=== PATIENT | male | born 1960 | race Caucasian/White ===

== ENCOUNTER 2017-02-25 10:00 | Inpatient (IN) | payer OTHER ==
[2017-02-25 10:37] VITALS: BMI 29.5
--- NOTE | 2017-02-25 13:00 | HP ---
CIWA Score - CIWA Score Nausea/Vomitin (N/V/D) Muscle Tremors: 4-Moderate,w/Arms Extend Anxiety: 4-Mod. Anxious/Guarded Agitation: 3 Paroxysmal Sweats: 1-Minimal Palms Moist Orientation: 0-Oriented Tacttile Disturbances: 3-Moderate Itch/Numb/Burn Auditory Disturbances: 0-None Visual Disturbances: 0-None Headache: 1-Very Mild CIWA-Ar Total Score: 21 Admission ROS S - HPI Chief Complaint: WITHDRAWAL SX Allergies/Adverse Reactions: Allergies Allergy/AdvReac Type Severity Reaction Status Date / Time Penicillins Allergy Intermediate Swelling Verified 02/25/17 10:52 History of Present Illness: 57 Y/O H/ WITH A HX OF ALCOHOL AND COCAINE DEPENDENCE SEEKING DETOX TX. Exam Limitations: No Limitations - Ebola screening Have you traveled outside of the country in the last 21 days: No Have you had contact with anyone from an Ebola affected area: No Have you been sick,other than usual withdrawal symptoms: No - Review of Systems Constitutional: Chills, Loss of Appetite, Night Sweats, Changes in sleep, Unintentional Wgt. Loss EENT: reports: Blurred Vision, Tearing, Nose Congestion, Dental Problems (UPPER DENTURE; TOOTH EXTRACTION ONE MONTH AGO.) Respiratory: reports: Shortness of Breath (HX ASTHMA), Wheezing Cardiac: reports: Lightheadedness GI: reports: Diarrhea, Nausea, Poor Appetite, Poor Fluid Intake, Vomiting : reports: Burning (WHEN DRINKING ALCOHOL), Discharge, Frequency, Other ( UNCIRCUMSIZED- PENILE ITCHY RASH.) Musculoskeletal: reports: Back Pain, Joint Pain, Muscle Pain Integumentary: reports: Rash Neuro: reports: Headache, Seizure (LAST EPISODE WAS A WEEK AGO), Dizziness Endocrine: reports: No Symptoms Reported Hematology: reports: No Symptoms Reported Psychiatric: reports: Orientated x3, Anxious, Depressed Other Systems: Reviewed and Negative Patient History - Patient Medical History Hx Anemia: No Hx Asthma: Yes (MDI) Hx Chronic Obstructive Pulmonary Disease (COPD): No Hx Cardiac Disorders: No Hx Hypertension: No Hx Hypercholesterolemia: Yes (ON ZOCOR) HX Cerebrovascular Accident: No Hx Seizures: Yes (DUE TO FALL HEAD INJURY IN 1974;LAST 1 WEEK AGO) Hx Diabetes: Yes ([id number] LANTUS 30 UNITS) Hx Gastrointestinal Disorders: No Hx Genitourinary Disorders: No Hx Sexually Transmitted Disorders: Yes (SYPHILIS/GONORRHEA HX) Hx Renal Disease (ESRD): No Hx Thyroid Disease: No Hx Human Immunodeficiency Virus (HIV): No (DENIES) Hx Hepatitis C: No Hx Depression: Yes Hx Suicide Attempt: No (DENIES) Hx Bipolar Disorder: Yes (ON MED) Hx Schizophrenia: No - Patient Surgical History Past Surgical History: Yes Hx Neurologic Surgery: No Hx Cataract Extraction: No Hx Cardiac Surgery: No Hx Lung Surgery: No Hx Breast Surgery: No Hx Breast Biopsy: No Hx Abdominal Surgery: Yes (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/10/75) Hx Orthopedic Surgery: Yes (PLATE ON RIGHT HAND DUE TO FALL INJURY 01/10/75) Anesthesia Reaction: No - PPD History Previous Implant?: Yes Documented Results: Negative w/o proof Implanted On Prior R Admission?: Yes PPD to be Administered?: Yes - Reproductive History Patient is a Female of Child Bearing Age (11 -55 yrs old): No (MALE) - Smoking Cessation Smoking history: Current every day smoker Have you smoked in the past 12 months: Yes Aproximately how many cigarettes per day: 10 Hx Chewing Tobacco Use: No Initiated information on smoking cessation: Yes 'Breaking Loose' booklet given: 02/25/17 - Substance & Tx. History Hx Alcohol Use: Yes (VODKA/BEER) Hx Substance Use: Yes (COCAINE) Substance Use Type: Cocaine Hx Substance Use Treatment: Yes (LAST TX AT [facility]) - Substances Abused Alcohol Route: Oral Frequency: Daily Amount used: vodka(1-2 pints)/beer(2-6 pks-16 oz cans) Age of first use: 27 Date of Last Use: 02/25/17 Cocaine Route: Smoking Frequency: Daily Amount used: $150 Age of first use: 32 Date of Last Use: 02/25/17 Family Disease History - Family Disease History Family Disease History: Diabetes: Mother (), Respiratory: Mother, Other : Mother Admission Physical Exam S - Vital Signs Vital Signs: Vital Signs - 24 hr 02/25/17 10:33 Temperature 96.3 F L Pulse Rate 86 Respiratory 18 Rate Blood Pressure 145/81 - Physical General Appearance: Yes: Moderate Distress, Irritable, Anxious HEENTM: Yes: EOMI, Normocephalic, STEPHENIE, Pharynx Normal, Nasal Congestion, Rhinorrhea Respiratory: Yes: Chest Non-Tender, Lungs Clear, Normal Breath Sounds, No Respiratory Distress Neck: Yes: Supple, Trachea in good position Breast: Yes: Breast Exam Deferred Cardiology: Yes: Regular Rhythm, Regular Rate, S1, S2 Abdominal: Yes: Normal Bowel Sounds, Non Tender Genitourinary: Yes: [place], Penial Discharge (BY HX), Other (REDNESS/SWELLING) , Pain (PENILE) Back: Yes: Within Normal Limits Musculoskeletal: Yes: full range of Motion, Gait Steady Extremities: Yes: Normal Range of Motion, Non-Tender 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, Fully Oriented, Alert, Motor Strength 5/5 Integumentary: Yes: Dry, Warm Lymphatic: Yes: Within Normal Limits - Diagnostic (1) Alcohol dependence with uncomplicated withdrawal Current Visit: Yes Status: Acute (2) Cocaine dependence, uncomplicated Current Visit: Yes Status: Acute (3) Asthma Current Visit: Yes Status: Acute Qualifiers: Asthma severity: mild Asthma persistence: intermittent Asthma complication type: uncomplicated Qualified Code(s): J45.20 - Mild intermittent asthma, uncomplicated (4) Seizure disorder Current Visit: Yes Status: Chronic (5) Hx of head injury Current Visit: Yes Status: Chronic (6) Hypercholesterolemia Current Visit: Yes Status: Chronic (7) Balanitis Current Visit: Yes Status: Acute Cleared for Admission [facility] - Detox or Rehab [facility] Level of Care: Medically Managed Detox Regimen/Protocol: Librium [facility] Breath Alcohol Content Breath Alcohol Content: 0 Urine Drug Screen - Results Drug Screen Negative: No Urine Drug Screen Results: NEY-Cocaine, BZO-Benzodiazepines
[2017-02-25] MEDS ORDERED: MAGNESIUM HYDROX 2400MG/30ML ORAL SUSPENSION 30 ML CUP PO PRN (13:18)
[2017-02-25] MEDS ORDERED: P-EPHED 60MG/TRIPROLIDI 2.5MG TABLET PO PRN (13:18)
[2017-02-25] MEDS ORDERED: chlordiazePOXIDE HCL 25 MG CAPSULE PO PRN (13:18)
[2017-02-25] MEDS ORDERED: MENTHOL/PHENOL 1 EACH UD MM PRN (13:18)
[2017-02-25] MEDS ORDERED: ACETAMINOPHEN 325 MG TABLET (FP) PO PRN (13:18)
[2017-02-25] MEDS ORDERED: guaiFENesin/D-METHORPHAN HB 10 ML UNIT-DOSE CUPS PO PRN (13:18)
[2017-02-25] MEDS ORDERED: MAGNESIUM CITRATE 300 ML BOTTLE PO PRN (13:18)
[2017-02-25] MEDS ORDERED: MAG HYDROX/AL HYDROX/SIMETH 30 ML UNIT-DOSE CUP PO PRN (13:18)
[2017-02-25] MEDS ORDERED: IBUPROFEN 400 MG TABLET (FP) PO PRN (13:18)
[2017-02-25] MEDS ORDERED: NICOTINE POLACRILEX 2 MG GUM BC PRN (13:18)
[2017-02-25] MEDS ORDERED: LOPERAMIDE HCL 2 MG CAPSULE PO PRN (13:18)
[2017-02-25] MEDS ORDERED: ALBUTEROL SO4 18 GM HFA INHALER IH PRN (13:21)
[2017-02-25] MEDS ORDERED: PATIENT'S OWN MEDICATION (NON-FORMULARY) (Sitagliptin Phos/Metformin Hcl [Janumet 50-1,000 PO SCH (13:30)
[2017-02-25] MEDS ORDERED: chlordiazePOXIDE HCL 25 MG CAPSULE PO ONE (14:00)
[2017-02-25] MEDS: BUDESONIDE/FORMETEROL FUMARATE 160/4.5 mcg INHALER IH SCH ×2 (14:20→22:33)
[2017-02-25] MEDS ORDERED: sitaGLIPtin PHOSPHATE 50 MG TABLET PO SCH (14:22)
[2017-02-25] MEDS: NICOTINE 14 MG/24 HOURS TOPICAL PATCH TD SCH (14:24)
[2017-02-25] MEDS ORDERED: metFORMIN HCL 500 MG TABLET (FP) PO SCH (14:24)
--- NOTE | 2017-02-25 15:26 | CONSULT ---
[facility] Psychiatric Consult - Data Date of interview: 02/25/17 Admission source: [facility] Identifying data: This is 57 years old male with psycxiatric hospitalization history intoxicated with: Alcohol and Cocaine Substance Abuse History: - Smoking Cessation. Smoking history: Current every day smoker. Have you smoked in the past 12 months: Yes. Aproximately how many cigarettes per day: 10. Hx Chewing Tobacco Use: No. Initiated information on smoking cessation: Yes. 'Breaking Loose' booklet given: 02/25/17. - Substance & Tx. History. Hx Alcohol Use: Yes (VODKA/BEER). Hx Substance Use: Yes ( COCAINE). Substance Use Type: Cocaine. Hx Substance Use Treatment: Yes (LAST TX AT [facility]). - Substances Abused. Alcohol. Route: Oral. Frequency: Daily. Amount used: vodka(1-2 pints)/beer(2-6 pks-16 oz cans). Age of first use: 27. Date of Last Use: 02/25/17. Cocaine. Route: Smoking. Frequency: Daily. Amount used: $150. Age of first use: 32. Date of Last Use: 02/25/17 Medical History: Asthma, Hypecholesterolemia, Seizure history, Head injury history Psychiatric History: Patient reportsm history of MDD, reports nost rtecent psychiatric admission on 2015 at [facility] for [facility], denies suicidal history. Reports takinmg prior to admission: Paxil 40mg poqd. TYrazodone 100mg pop qhs Physical/Sexual Abuse/Trauma History: Denies Additional Comment: Paxil 40mg poqd. Trazodone 100mg pop qhs Mental Status Exam - Mental Status Exam Alert and Oriented to: Person Cognitive Function: Fair Patient Appearance: Unkempt Mood: Sad Affect: Flat Patient Behavior: Sedated Speech Pattern: Appropriate Voice Loudness: Normal Thought Process: Circumstantial Thought Disorder: Being Controlled Hallucinations: Denies Suicidal Ideation: Denies Homicidal Ideation: Denies Insight/Judgement: Fair Sleep: Difficulty falling asleep Appetite: Fair Muscle strength/Tone: Mild Hypotonicity Gait/Station: Shuffling Additional Comments: Paxil 40mg poqd. Trazodone 100mg pop qhs
[2017-02-25] MEDS: BACITRACIN 0.9 GM PACKET TP SCH ×2 (16:11→22:31)
[2017-02-25] MEDS ORDERED: metFORMIN HCL 500 MG TABLET (FP) PO ONE (16:30)
[2017-02-25] MEDS ORDERED: sitaGLIPtin PHOSPHATE 50 MG TABLET PO ONE (16:30)
--- NOTE | 2017-02-25 16:37 | EKG ---
Test Reason : Blood Pressure : / mmHG Vent. Rate : 082 BPM Atrial Rate : 082 BPM P-R Int : 120 ms QRS Dur : 070 ms QT Int : 328 ms P-R-T Axes : 061 029 031 degrees QTc Int : 383 ms NORMAL SINUS RHYTHM NONSPECIFIC T WAVE ABNORMALITY ABNORMAL ECG NO PREVIOUS ECGS AVAILABLE Confirmed by SHARA FALLON, KIMMY ([id number]) on 02/25/2017 4:37:03 PM Referred By: Confirmed By:KIMMY OLMEDO MD
[2017-02-25 16:41] LABS: MCH 32.3 pg (25.7-33.7); MCHC 33.7 g/dl (32.0-35.9); MEAN CELL VOLUME 95.9 fl (80-96); MEAN PLT VOLUME 9.3 fl (7.5-11.1); PLATELET COUNT 321 K/MM3 (134-434); RDW 13.8 % (11.9-15.9); WHITE BLOOD COUNT 9.7 K/mm3 (4.0-10.0)
[2017-02-25 17:40] LABS: ALBUMIN 4.1 g/dl (3.4-5.0); ANION GAP 9 (8-16); BILIRUBIN,TOTAL 0.5 mg/dL (0.2-1.0); CALCIUM 9.4 mg/dL (8.5-10.1); CO2 28 mmol/L (21-32); CREATININE 1.1 mg/dL (0.7-1.3); SGOT/AST 22 U/L (15-37); SGPT/ALT 33 U/L (12-78); TOT PROT 7.6 g/dl (6.4-8.2)
[2017-02-25 17:41] LABS: ALK PHOS 91 U/L (45-117)
[2017-02-25] MEDS: CLINDAMYCIN HCL 150 MG CAPSULE (FP) PO SCH ×2 (17:51→23:57)
[2017-02-25] MEDS: chlordiazePOXIDE HCL 25 MG CAPSULE PO SCH ×2 (17:52→22:32)
[2017-02-25 17:57] LABS: SICKLE CELL SCREEN NEGATIVE (NEGATIVE)
[2017-02-25 19:01] LABS: GLUCOSE,RANDOM 372 mg/dL (74-106)
[2017-02-25 19:39] LABS: URINE LEUK ESTERASE Negative (NEGATIVE)
[2017-02-25] MEDS ORDERED: INSULIN SLIDING SCALE (NOVOLOG) 1 VIAL SQ SCH (22:00)
--- NOTE | 2017-02-25 22:16 | PN ---
[facility] Progress Note Note: received nurse call bgm [phone] order insulin sliding scale begin 02/25/17
[2017-02-25] MEDS: traZODone HCL 100 MG TABLET (FP) PO SCH (22:31)
[2017-02-25] MEDS: THIAMINE HCL 100 MG TABLET (FP) PO SCH (22:31)
[2017-02-25] MEDS: ATORVASTATIN CA 10 MG TABLET (FP) PO SCH (22:31)
[2017-02-25] MEDS ORDERED: INSULIN (NOVOLOG) ASPART 100 UNITS/ML 10ML VIAL ONE (22:40)
[2017-02-25] MEDS: INSULIN DETEMIR 100 UNITS/ML MDV SQ SCH (22:56)
[2017-02-25] MEDS: INSULIN SLIDING SCALE (NOVOLOG) 1 VIAL SQ SCH (22:57)
[2017-02-26] MEDS: metFORMIN HCL 500 MG TABLET (FP) PO SCH (06:18)
[2017-02-26] MEDS: chlordiazePOXIDE HCL 25 MG CAPSULE PO SCH ×4 (06:18→23:22)
[2017-02-26] MEDS: CLINDAMYCIN HCL 150 MG CAPSULE (FP) PO SCH ×4 (06:18→23:54)
[2017-02-26] MEDS ORDERED: INSULIN (NOVOLOG) ASPART 100 UNITS/ML 10ML VIAL ONE ×2 (06:18→23:25)
[2017-02-26] MEDS: sitaGLIPtin PHOSPHATE 50 MG TABLET PO SCH (06:18)
[2017-02-26] MEDS: INSULIN SLIDING SCALE (NOVOLOG) 1 VIAL SQ SCH ×4 (06:19→23:28)
[2017-02-26 09:03] LABS: HIV 1 & 2 AB NEGATIVE; HIV 1 AGp24 NEGATIVE
[2017-02-26] MEDS: ASPIRIN 81 MG CHEWABLE TABLETS PO SCH (11:05)
[2017-02-26] MEDS: BACITRACIN 0.9 GM PACKET TP SCH ×2 (11:05→23:21)
[2017-02-26] MEDS: PARoxetine HCL 20 MG TABLET (FP) PO SCH (11:05)
[2017-02-26] MEDS: BUDESONIDE/FORMETEROL FUMARATE 160/4.5 mcg INHALER IH SCH ×2 (11:05→23:22)
[2017-02-26] MEDS: PRENATAL VITAMINS W/ FOLIC ACID TABLET (FP) PO SCH (11:05)
[2017-02-26] MEDS: NICOTINE 14 MG/24 HOURS TOPICAL PATCH TD SCH (11:05)
--- NOTE | 2017-02-26 11:39 | PN ---
[facility] CIWA - CIWA Score Nausea/Vomitin-No Nausea/No Vomiting Muscle Tremors: 3 Anxiety: 5 Agitation: 4-Moderately Restless Paroxysmal Sweats: 3 Orientation: 0-Oriented Tacttile Disturbances: 2-Mild Itch/Numbness/Burn Auditory Disturbances: 2-Mild Harshness/Frighten Visual Disturbances: 0-None Headache: 0-None Present CIWA-Ar Total Score: 19 [facility] Progress Note (SOAP) Subjective: Anxious, Sweating, Body Aches, Fatigue. Objective: PT. REFUSED TO ANSWER QUESTIONS REGARDING ORIENTATION. 02/26/17 11:36 Vital Signs Temperature 98.1 F 02/26/17 06:33 Pulse Rate 94 H 02/26/17 06:33 Respiratory Rate 18 02/26/17 06:33 Blood Pressure 92/60 02/26/17 06:33 O2 Sat by Pulse Oximetry (%) Laboratory Tests 02/25/17 02/25/17 02/25/17 11:14 12:00 13:00 WBC 9.7 RBC 4.77 Hgb 15.4 Hct 45.8 MCV 95.9 MCH 32.3 MCHC 33.7 RDW 13.8 Plt Count 321 MPV 9.3 Sickle Cell Screen Negative Sodium Potassium Chloride Carbon Dioxide Anion Gap BUN Creatinine Creat Clearance w eGFR POC Glucometer 386 Random Glucose Calcium Total Bilirubin AST ALT Alkaline Phosphatase Total Protein Albumin Ur Leukocyte Esterase RPR Titer HIV 1&2 Antibody Screen Negative HIV P24 Antigen Negative 02/25/17 02/25/17 02/25/17 13:00 13:00 14:50 WBC RBC Hgb Hct MCV MCH MCHC RDW Plt Count MPV Sickle Cell Screen Sodium 135 L Potassium 4.7 Chloride 98 Carbon Dioxide 28 Anion Gap 9 BUN 18 Creatinine 1.1 Creat Clearance w eGFR > 60 POC Glucometer Random Glucose 372 H* Calcium 9.4 Total Bilirubin 0.5 AST 22 ALT 33 Alkaline Phosphatase 91 Total Protein 7.6 Albumin 4.1 Ur Leukocyte Esterase Negative RPR Titer Nonreactive HIV 1&2 Antibody Screen HIV P24 Antigen 02/25/17 02/25/17 02/26/17 16:27 22:36 05:53 WBC RBC Hgb Hct MCV MCH MCHC RDW Plt Count MPV Sickle Cell Screen Sodium Potassium Chloride Carbon Dioxide Anion Gap BUN Creatinine Creat Clearance w eGFR POC Glucometer 393 282 206 Random Glucose Calcium Total Bilirubin AST ALT Alkaline Phosphatase Total Protein Albumin Ur Leukocyte Esterase RPR Titer HIV 1&2 Antibody Screen HIV P24 Antigen LABS NOTED. UA RESULTS PENDING. 02/26/17 11:38 Assessment: 02/26/17 11:37 WITHDRAWAL SYMPTOMS. Plan: CONTINUE DETOX. INCREASE DAILY PO FLUID INTAKE.
[2017-02-26] MEDS ORDERED: FLU VACCINE QUAD 60 MCG/0.5 ML (MDV 17-18) IM ONE (12:00)
[2017-02-26] MEDS: traZODone HCL 100 MG TABLET (FP) PO SCH (23:21)
[2017-02-26] MEDS: ATORVASTATIN CA 10 MG TABLET (FP) PO SCH (23:21)
[2017-02-26] MEDS: THIAMINE HCL 100 MG TABLET (FP) PO SCH (23:21)
[2017-02-26] MEDS: INSULIN DETEMIR 100 UNITS/ML MDV SQ SCH (23:28)
[2017-02-27] MEDS: chlordiazePOXIDE HCL 25 MG CAPSULE PO SCH ×2 (05:27→10:05)
[2017-02-27] MEDS: CLINDAMYCIN HCL 150 MG CAPSULE (FP) PO SCH ×4 (05:27→17:11)
[2017-02-27] MEDS: metFORMIN HCL 500 MG TABLET (FP) PO SCH (07:10)
[2017-02-27] MEDS: sitaGLIPtin PHOSPHATE 50 MG TABLET PO SCH (07:10)
[2017-02-27] MEDS ORDERED: INSULIN (NOVOLOG) ASPART 100 UNITS/ML 10ML VIAL ONE ×2 (07:14→11:49)
[2017-02-27] MEDS: INSULIN SLIDING SCALE (NOVOLOG) 1 VIAL SQ SCH ×5 (07:14→22:29)
[2017-02-27] MEDS: BACITRACIN 0.9 GM PACKET TP SCH ×2 (10:04→22:29)
[2017-02-27] MEDS: ASPIRIN 81 MG CHEWABLE TABLETS PO SCH (10:04)
[2017-02-27] MEDS: PARoxetine HCL 20 MG TABLET (FP) PO SCH (10:04)
[2017-02-27] MEDS: PRENATAL VITAMINS W/ FOLIC ACID TABLET (FP) PO SCH (10:04)
[2017-02-27] MEDS: BUDESONIDE/FORMETEROL FUMARATE 160/4.5 mcg INHALER IH SCH ×2 (10:05→22:29)
[2017-02-27] MEDS: NICOTINE 14 MG/24 HOURS TOPICAL PATCH TD SCH (10:05)
--- NOTE | 2017-02-27 16:26 | PN ---
S CIWA - CIWA Score Nausea/Vomitin Muscle Tremors: None Anxiety: 5 Agitation: 4-Moderately Restless Paroxysmal Sweats: 3 Orientation: 2-Disoriented Date<2 days Tacttile Disturbances: 2-Mild Itch/Numbness/Burn Auditory Disturbances: 0-None Visual Disturbances: 0-None Headache: 0-None Present CIWA-Ar Total Score: 19 [facility] Progress Note (SOAP) Subjective: Nausea, Diarrhea, Stomach Cramping, Body Aches, Anxious, Fatigue. Objective: PT. A & O X 2 (UNCERTAIN ABOUT DAY / DATE). PT. OBSERVED AMBULATING ON UNIT. NO ACUTE DISTRESS. 02/27/17 16:23 Vital Signs Temperature 96.8 F L 02/27/17 13:53 Pulse Rate 84 02/27/17 13:53 Respiratory Rate 19 02/27/17 13:53 Blood Pressure 116/80 02/27/17 13:53 O2 Sat by Pulse Oximetry (%) Laboratory Tests 02/25/17 02/25/17 02/25/17 11:14 12:00 13:00 WBC 9.7 RBC 4.77 Hgb 15.4 Hct 45.8 MCV 95.9 MCH 32.3 MCHC 33.7 RDW 13.8 Plt Count 321 MPV 9.3 Sickle Cell Screen Negative Sodium Potassium Chloride Carbon Dioxide Anion Gap BUN Creatinine Creat Clearance w eGFR POC Glucometer 386 Random Glucose Calcium Total Bilirubin AST ALT Alkaline Phosphatase Total Protein Albumin Ur Leukocyte Esterase RPR Titer HIV 1&2 Antibody Screen Negative HIV P24 Antigen Negative 02/25/17 02/25/17 02/25/17 13:00 13:00 14:50 WBC RBC Hgb Hct MCV MCH MCHC RDW Plt Count MPV Sickle Cell Screen Sodium 135 L Potassium 4.7 Chloride 98 Carbon Dioxide 28 Anion Gap 9 BUN 18 Creatinine 1.1 Creat Clearance w eGFR > 60 POC Glucometer Random Glucose 372 H* Calcium 9.4 Total Bilirubin 0.5 AST 22 ALT 33 Alkaline Phosphatase 91 Total Protein 7.6 Albumin 4.1 Ur Leukocyte Esterase Negative RPR Titer Nonreactive HIV 1&2 Antibody Screen HIV P24 Antigen 02/25/17 02/25/17 02/26/17 16:27 22:36 05:53 WBC RBC Hgb Hct MCV MCH MCHC RDW Plt Count MPV Sickle Cell Screen Sodium Potassium Chloride Carbon Dioxide Anion Gap BUN Creatinine Creat Clearance w eGFR POC Glucometer 393 282 206 Random Glucose Calcium Total Bilirubin AST ALT Alkaline Phosphatase Total Protein Albumin Ur Leukocyte Esterase RPR Titer HIV 1&2 Antibody Screen HIV P24 Antigen 02/26/17 02/27/17 02/27/17 23:19 05:25 11:45 WBC RBC Hgb Hct MCV MCH MCHC RDW Plt Count MPV Sickle Cell Screen Sodium Potassium Chloride Carbon Dioxide Anion Gap BUN Creatinine Creat Clearance w eGFR POC Glucometer 269 219 336 Random Glucose Calcium Total Bilirubin AST ALT Alkaline Phosphatase Total Protein Albumin Ur Leukocyte Esterase RPR Titer HIV 1&2 Antibody Screen HIV P24 Antigen LABS NOTED. UA RESULTS PENDING. 02/27/17 16:25 Assessment: 02/27/17 16:24 WITHDRAWAL SYMPTOMS. Plan: CONTINUE DETOX. INCREASE DAILY PO FLUID INTAKE. ENCOURAGE AMBULATION.
[2017-02-27] MEDS: chlordiazePOXIDE 5 MG CAPSULE PO SCH ×2 (17:09→22:31)
[2017-02-27] MEDS: traZODone HCL 100 MG TABLET (FP) PO SCH (22:28)
[2017-02-27] MEDS: THIAMINE HCL 100 MG TABLET (FP) PO SCH (22:28)
[2017-02-27] MEDS: ATORVASTATIN CA 10 MG TABLET (FP) PO SCH (22:28)
[2017-02-27] MEDS: INSULIN DETEMIR 100 UNITS/ML MDV SQ SCH (22:29)
[2017-02-28] MEDS: CLINDAMYCIN HCL 150 MG CAPSULE (FP) PO SCH ×4 (00:13→19:54)
[2017-02-28] MEDS: chlordiazePOXIDE 5 MG CAPSULE PO SCH ×2 (05:35→12:01)
[2017-02-28] MEDS ORDERED: INSULIN (NOVOLOG) ASPART 100 UNITS/ML 10ML VIAL ONE ×2 (06:32→16:57)
[2017-02-28] MEDS: metFORMIN HCL 500 MG TABLET (FP) PO SCH (06:33)
[2017-02-28] MEDS: sitaGLIPtin PHOSPHATE 50 MG TABLET PO SCH (06:33)
[2017-02-28] MEDS: sitaGLIPtin PHOSPHATE 25 MG TABLET (FP) PO SCH (06:37)
[2017-02-28] MEDS: INSULIN SLIDING SCALE (NOVOLOG) 1 VIAL SQ SCH ×4 (06:47→23:49)
[2017-02-28] MEDS: ASPIRIN 81 MG CHEWABLE TABLETS PO SCH (12:01)
[2017-02-28] MEDS: PARoxetine HCL 20 MG TABLET (FP) PO SCH (12:01)
[2017-02-28] MEDS: NICOTINE 14 MG/24 HOURS TOPICAL PATCH TD SCH (12:01)
[2017-02-28] MEDS: BACITRACIN 0.9 GM PACKET TP SCH ×2 (12:01→23:48)
[2017-02-28] MEDS: BUDESONIDE/FORMETEROL FUMARATE 160/4.5 mcg INHALER IH SCH ×2 (12:01→23:49)
[2017-02-28] MEDS: PRENATAL VITAMINS W/ FOLIC ACID TABLET (FP) PO SCH (12:01)
--- NOTE | 2017-02-28 15:59 | PN ---
[facility] Progress Note (SOAP) Subjective: Tremor, interrupted sleep Objective: 02/28/17 15:55 Last Vital Signs Temp Pulse Resp BP Pulse Ox 96.5 F L 71 19 104/61 02/28/17 09:33 02/28/17 09:33 02/28/17 09:33 02/28/17 09:33 Laboratory Tests 02/25/17 02/25/17 02/25/17 11:14 12:00 13:00 WBC 9.7 RBC 4.77 Hgb 15.4 Hct 45.8 MCV 95.9 MCH 32.3 MCHC 33.7 RDW 13.8 Plt Count 321 MPV 9.3 Sickle Cell Screen Negative Sodium Potassium Chloride Carbon Dioxide Anion Gap BUN Creatinine Creat Clearance w eGFR POC Glucometer 386 Random Glucose Calcium Total Bilirubin AST ALT Alkaline Phosphatase Total Protein Albumin Ur Leukocyte Esterase RPR Titer HIV 1&2 Antibody Screen Negative HIV P24 Antigen Negative 02/25/17 02/25/17 02/25/17 13:00 13:00 14:50 WBC RBC Hgb Hct MCV MCH MCHC RDW Plt Count MPV Sickle Cell Screen Sodium 135 L Potassium 4.7 Chloride 98 Carbon Dioxide 28 Anion Gap 9 BUN 18 Creatinine 1.1 Creat Clearance w eGFR > 60 POC Glucometer Random Glucose 372 H* Calcium 9.4 Total Bilirubin 0.5 AST 22 ALT 33 Alkaline Phosphatase 91 Total Protein 7.6 Albumin 4.1 Ur Leukocyte Esterase Negative RPR Titer Nonreactive HIV 1&2 Antibody Screen HIV P24 Antigen 02/25/17 02/25/17 02/26/17 16:27 22:36 05:53 WBC RBC Hgb Hct MCV MCH MCHC RDW Plt Count MPV Sickle Cell Screen Sodium Potassium Chloride Carbon Dioxide Anion Gap BUN Creatinine Creat Clearance w eGFR POC Glucometer 393 282 206 Random Glucose Calcium Total Bilirubin AST ALT Alkaline Phosphatase Total Protein Albumin Ur Leukocyte Esterase RPR Titer HIV 1&2 Antibody Screen HIV P24 Antigen 02/26/17 02/27/17 02/27/17 23:19 05:25 11:45 WBC RBC Hgb Hct MCV MCH MCHC RDW Plt Count MPV Sickle Cell Screen Sodium Potassium Chloride Carbon Dioxide Anion Gap BUN Creatinine Creat Clearance w eGFR POC Glucometer 269 219 336 Random Glucose Calcium Total Bilirubin AST ALT Alkaline Phosphatase Total Protein Albumin Ur Leukocyte Esterase RPR Titer HIV 1&2 Antibody Screen HIV P24 Antigen 02/28/17 05:35 WBC RBC Hgb Hct MCV MCH MCHC RDW Plt Count MPV Sickle Cell Screen Sodium Potassium Chloride Carbon Dioxide Anion Gap BUN Creatinine Creat Clearance w eGFR POC Glucometer 217 Random Glucose Calcium Total Bilirubin AST ALT Alkaline Phosphatase Total Protein Albumin Ur Leukocyte Esterase RPR Titer HIV 1&2 Antibody Screen HIV P24 Antigen Labs noted: hyperglycemia Assessment: 02/28/17 15:56 Withdrawal symptoms Noted with hyperglycemia Plan: Continue detox Hyperglycemia secondary to DMT2: encouraged diabetic diet, continue diabetic regimen, follow up with your PCP post discharge for management
[2017-02-28] MEDS: chlordiazePOXIDE HCL 10 MG CAPSULE PO SCH ×2 (18:18→23:49)
[2017-02-28] MEDS: traZODone HCL 100 MG TABLET (FP) PO SCH (23:48)
[2017-02-28] MEDS: INSULIN DETEMIR 100 UNITS/ML MDV SQ SCH (23:48)
[2017-02-28] MEDS: THIAMINE HCL 100 MG TABLET (FP) PO SCH (23:49)
[2017-02-28] MEDS: ATORVASTATIN CA 10 MG TABLET (FP) PO SCH (23:49)
[2017-03-01] MEDS: CLINDAMYCIN HCL 150 MG CAPSULE (FP) PO SCH ×2 (00:40→05:30)
[2017-03-01] MEDS ORDERED: INSULIN DETEMIR 100 UNITS/ML MDV SQ ONE (01:05)
[2017-03-01] MEDS ORDERED: traZODone HCL 50 MG TABLET (FP) PO ONE (01:06)
[2017-03-01] MEDS: chlordiazePOXIDE HCL 10 MG CAPSULE PO SCH (05:31)
[2017-03-01] MEDS: metFORMIN HCL 500 MG TABLET (FP) PO SCH (07:09)
[2017-03-01] MEDS: INSULIN SLIDING SCALE (NOVOLOG) 1 VIAL SQ SCH (07:10)
[2017-03-01] MEDS: sitaGLIPtin PHOSPHATE 25 MG TABLET (FP) PO SCH (07:10)
[2017-03-01 09:33] VITALS: BP 112/67; PULSE 84; TEMP 98.3
[2017-03-01] MEDS: BACITRACIN 0.9 GM PACKET TP SCH (09:33)
[2017-03-01] MEDS: BUDESONIDE/FORMETEROL FUMARATE 160/4.5 mcg INHALER IH SCH (09:33)
[2017-03-01] MEDS: PARoxetine HCL 20 MG TABLET (FP) PO SCH (09:33)
[2017-03-01] MEDS: ASPIRIN 81 MG CHEWABLE TABLETS PO SCH (09:33)
[2017-03-01] MEDS: NICOTINE 14 MG/24 HOURS TOPICAL PATCH TD SCH (09:34)
[2017-03-01] MEDS: PRENATAL VITAMINS W/ FOLIC ACID TABLET (FP) PO SCH (09:34)
--- NOTE | 2017-03-01 10:05 | DS ---
[facility] Detox Discharge Summary Admission Date: 02/25/17 Discharge Date: 03/01/17 - History Additional Comments: Pt offered admission in Rehab but refused, stating he wants to go to [facility] home in [place]. Counsellor aware and in discussion with pt. Pertinent Past History: Alcohol dependence with uncomplicated withdrawals cocaine dependence, uncomplicated Asthma DM Balanitis Hypercholestremia seizure - Physical Exam Results Vital Signs: Vital Signs Temperature 98.3 F 03/01/17 09:32 Pulse Rate 84 03/01/17 09:32 Respiratory Rate 18 03/01/17 09:32 Blood Pressure 112/67 03/01/17 09:32 O2 Sat by Pulse Oximetry (%) Pertinent Admission Physical Exam Findings: withdrawal sx Laboratory Last Values WBC 9.7 K/mm3 (4.0-10.0) 02/25/17 13:00 RBC 4.77 M/mm3 (4.00-5.60) 02/25/17 13:00 Hgb 15.4 GM/dL (11.7-16.9) 02/25/17 13:00 Hct 45.8 % (35.4-49) 02/25/17 13:00 MCV 95.9 fl (80-96) 02/25/17 13:00 MCH 32.3 pg (25.7-33.7) 02/25/17 13:00 MCHC 33.7 g/dl (32.0-35.9) 02/25/17 13:00 RDW 13.8 % (11.9-15.9) 02/25/17 13:00 Plt Count 321 K/MM3 (134-434) 02/25/17 13:00 MPV 9.3 fl (7.5-11.1) 02/25/17 13:00 Sickle Cell Screen Negative (NEGATIVE) 02/25/17 13:00 Sodium 135 mmol/L (136-145) L 02/25/17 13:00 Potassium 4.7 mmol/L (3.5-5.1) 02/25/17 13:00 Chloride 98 mmol/L (98-107) 02/25/17 13:00 Carbon Dioxide 28 mmol/L (21-32) 02/25/17 13:00 Anion Gap 9 (8-16) 02/25/17 13:00 BUN 18 mg/dL (7-18) 02/25/17 13:00 Creatinine 1.1 mg/dL (0.7-1.3) 02/25/17 13:00 Creat Clearance w eGFR > 60 (>60) 02/25/17 13:00 POC Glucometer 161 UNITS (80-120) 03/01/17 05:28 Random Glucose 372 mg/dL (74-106) H* 02/25/17 13:00 Calcium 9.4 mg/dL (8.5-10.1) 02/25/17 13:00 Total Bilirubin 0.5 mg/dL (0.2-1.0) 02/25/17 13:00 AST 22 U/L (15-37) 02/25/17 13:00 ALT 33 U/L (12-78) 02/25/17 13:00 Alkaline Phosphatase 91 U/L (45-117) 02/25/17 13:00 Total Protein 7.6 g/dl (6.4-8.2) 02/25/17 13:00 Albumin 4.1 g/dl (3.4-5.0) 02/25/17 13:00 Ur Leukocyte Esterase Negative (NEGATIVE) 02/25/17 14:50 RPR Titer Nonreactive (NONREACTIVE) 02/25/17 13:00 HIV 1&2 Antibody Screen Negative 02/25/17 12:00 HIV P24 Antigen Negative 02/25/17 12:00 labs noted; will continue insulin at home - Treatment Hospital Course: Detox Protocol Followed, Detoxed Safely, Responded well, Discharged Condition Good Patient has Accepted a Rehab Referral to: Pt refused - Medication Discharge Medications: Ambulatory Orders Albuterol Sulfate Inhaler - [Ventolin HFA Inhaler -] 1 - 2 inh PO Q4H PRN Aspirin [ASA -] 81 mg PO DAILY 02/25/17 Budesonide/Formeterol Fumarate [SYMBICORT 160/4.5mcg -] 2 inh PO BID 02/25/17 Clonazepam [Klonopin -] 0.5 mg PO HS 02/25/17 Insulin Glargine,Hum.rec.anlog [Lantus (10mL VIAL) -] 30 units SQ HS 02/25/17 Paroxetine HCl [Paxil -] 50 mg PO DAILY 02/25/17 Paroxetine HCl [Paxil] 40 mg PO DAILY #30 tablet 12/14/17 Simvastatin [Zocor -] 20 mg PO HS 02/25/17 Sitagliptin Phos/Metformin HCl [Janumet 50-1,000 mg Tablet] 1 each PO DAILY Trazodone HCl [Desyrel -] 50 mg PO HS 02/25/17 Trazodone HCl [Desyrel -] 100 mg PO HS #30 tablet 02/25/17 - Diagnosis (1) Alcohol dependence with uncomplicated withdrawal Current Visit: Yes Status: Acute (2) Balanitis Current Visit: Yes Status: Acute (3) Asthma Current Visit: Yes Status: Chronic Qualifiers: Asthma severity: mild Asthma persistence: intermittent Asthma complication type: uncomplicated Qualified Code(s): J45.20 - Mild intermittent asthma, uncomplicated (4) Cocaine dependence, uncomplicated Current Visit: Yes Status: Chronic (5) Hypercholesterolemia Current Visit: Yes Status: Chronic - AMA Did Patient Leave Against Medical Advice: No
[2017-03-01 12:25] LABS: PH,URINE 5.5 (4.5-8); URINE APPEARANCE Clear; URINE BILIRUBIN Negative (NEGATIVE); URINE BLOOD Negative (NEGATIVE); URINE GLUCOSE (UA) 2+ (NEGATIVE); URINE KETONE Negative (NEGATIVE); URINE NITRITE Negative (NEGATIVE); URINE PROTEIN Negative (NEGATIVE); URINE UROBILINOGEN 0.2 (0.2-1.0)
[2017-03-01 12:26] LABS: URINE COLOR YELLOW
== END 2017-03-01 09:36 | disposition home or self-care (01) | DRG 774 ==
LOC: YASAS 10:00 → Y3N 12:10
PROVIDERS: ADMIT Internal Medicine; ATTEND Internal Medicine
PROC: HZ2ZZZZ Detoxification Services for Substance Abuse Treatment (ICD-10-PCS; principal; 2017-02-25)
DX: F10.230 Alcohol dependence with withdrawal, uncomplicated (principal); F14.20 Cocaine dependence, uncomplicated; F31.9 Bipolar disorder, unspecified; E11.9 Type 2 diabetes mellitus without complications; Z79.4 Long term (current) use of insulin; G40.909 Epilepsy, unspecified, not intractable, without status epilepticus; N48.1 Balanitis; J45.20 Mild intermittent asthma, uncomplicated
CPT/HCPCS: 36415; 80053; 81003; 85027; 85660; 86593; 87389; 93005; 93010

== ENCOUNTER 2017-07-15 10:12 | Inpatient (IN) | payer BC ==
[2017-07-15 10:38] VITALS: BMI 23.9
--- NOTE | 2017-07-15 12:18 | HP ---
CIWA Score - CIWA Score Nausea/Vomitin-No Nausea/No Vomiting Muscle Tremors: 4-Moderate,w/Arms Extend Anxiety: 4-Mod. Anxious/Guarded Agitation: 4-Moderately Restless Paroxysmal Sweats: 1-Minimal Palms Moist Orientation: 0-Oriented Tacttile Disturbances: 3-Moderate Itch/Numb/Burn (NUMBNESS LEGS/ARMS) Auditory Disturbances: 0-None Visual Disturbances: 0-None Headache: 1-Very Mild CIWA-Ar Total Score: 17 Admission ROS S - HPI Chief Complaint: ALCOHOL WITHDRAWAL SX Allergies/Adverse Reactions: Allergies Allergy/AdvReac Type Severity Reaction Status Date / Time Penicillins Allergy Intermediate Swelling Verified 07/15/17 10:53 History of Present Illness: 57 Y/O H/MALE WITH A HX OF ALCOHOL,COCAINE AND MARIJUANA DEPENDENCE SEEKING DETOX [place]. Exam Limitations: No Limitations - Ebola screening Have you traveled outside of the country in the last 21 days: No Have you had contact with anyone from an Ebola affected area: No Have you been sick,other than usual withdrawal symptoms: No Do you have a fever: No - Review of Systems Constitutional: Chills, Loss of Appetite, Night Sweats, Changes in sleep EENT: reports: Blurred Vision, Tearing, Nose Congestion, Dental Problems ( PARTIAL UPPER/LOWER DENTURES) Respiratory: reports: Shortness of Breath (HX ASTHMA), Wheezing Cardiac: reports: Lightheadedness GI: reports: Poor Appetite, Poor Fluid Intake, Abdominal cramping : reports: Other (HX ENLARGED PROSTATE-NONCOMPLIANT WITH MED) Musculoskeletal: reports: Back Pain Integumentary: reports: No Symptoms Reported Neuro: reports: Headache, Seizure (TAKES KEPPRA BUT NONCOMPLIANT; LAST EPISODE WAS 9 MONTHS AGO.) Endocrine: reports: No Symptoms Reported Hematology: reports: No Symptoms Reported Psychiatric: reports: Orientated x3, Anxious, Depressed Other Systems: Reviewed and Negative Patient History - Patient Medical History Hx Anemia: No Hx Asthma: Yes (Pt is on MDI for asthma.) Hx Chronic Obstructive Pulmonary Disease (COPD): No Hx Cardiac Disorders: No Hx Hypertension: No Hx Hypercholesterolemia: Yes (ON ZOCOR) HX Cerebrovascular Accident: No Hx Seizures: Yes (seizure disorder last seizure was 9 months ago.) Hx Diabetes: Yes (Type II-JANUMET) Hx Gastrointestinal Disorders: No Hx Genitourinary Disorders: No Hx Sexually Transmitted Disorders: No Hx Renal Disease (ESRD): No Hx Thyroid Disease: No Hx Human Immunodeficiency Virus (HIV): No (NEGATIVE HX) Hx Hepatitis C: No Hx Depression: Yes Hx Suicide Attempt: Yes ([facility];DENIES S/I TODAY) Hx Bipolar Disorder: Yes (ON MED) Hx Schizophrenia: No - Patient Surgical History Past Surgical History: Yes Hx Neurologic Surgery: No Hx Cataract Extraction: No Hx Cardiac Surgery: No Hx Lung Surgery: No Hx Breast Surgery: No Hx Breast Biopsy: No Hx Abdominal Surgery: Yes (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/10/75) Hx Orthopedic Surgery: Yes (PLATE ON RIGHT HAND DUE TO FALL INJURY 01/10/75) Anesthesia Reaction: No - PPD History Previous Implant?: Yes Documented Results: Negative w/proof Implanted On Prior [facility] Admission?: Yes Date: 02/27/17 Results: 0 mm PPD to be Administered?: No - Reproductive History Patient is a Female of Child Bearing Age (11 -55 yrs old): No (MALE) - Smoking Cessation Smoking history: Current every day smoker Have you smoked in the past 12 months: Yes Aproximately how many cigarettes per day: 10 Hx Chewing Tobacco Use: No Initiated information on smoking cessation: Yes 'Breaking Loose' booklet given: 07/15/17 - Substance & Tx. History Hx Alcohol Use: Yes (BEER) Hx Substance Use: Yes (CRACK/MARIJUANA) Substance Use Type: Cocaine, Marijuana - Substances Abused Alcohol Route: Oral Frequency: Daily Amount used: 1-2 6PK BEERS Age of first use: 27 Date of Last Use: 07/15/17 Crack Route: Smoking Frequency: Daily Amount used: $20 Age of first use: 34 Date of Last Use: 07/15/17 Marijuana/Hashish Route: Smoking Frequency: Daily Amount used: $10 Age of first use: 20 Date of Last Use: 07/14/17 Family Disease History - Family Disease History Family Disease History: Diabetes: Mother (), Respiratory: Mother, Other : Mother Admission Physical Exam BHS - Vital Signs Vital Signs: Vital Signs - 24 hr 07/15/17 10:32 Temperature 97.3 F L Pulse Rate 88 Respiratory 18 Rate Blood Pressure 114/70 - Physical General Appearance: Yes: Moderate Distress, Thin, Irritable, Anxious HEENTM: Yes: EOMI, Normocephalic, STEPHENIE, Pharynx Normal, Nasal Congestion, Rhinorrhea Respiratory: Yes: Chest Non-Tender, Lungs Clear, Normal Breath Sounds, No Respiratory Distress Neck: Yes: No masses,lesions,Nodules, Supple, Trachea in good position Breast: Yes: Breast Exam Deferred Cardiology: Yes: Regular Rhythm, Regular Rate, S1, S2 Abdominal: Yes: Normal Bowel Sounds, Non Tender, Flat, Soft Genitourinary: Yes: Other (N/C) Back: Yes: Within Normal Limits Musculoskeletal: Yes: full range of Motion, Gait Steady Extremities: Yes: Normal Range of Motion, Non-Tender Neurological: Yes: deckhand shrimp boat II-XII NML intact, Fully Oriented, Alert, Motor Strength 5/5 Integumentary: Yes: Dry, Warm Lymphatic: Yes: Within Normal Limits - Diagnostic (1) Alcohol dependence with uncomplicated withdrawal Current Visit: Yes Status: Acute (2) Asthma Current Visit: Yes Status: Chronic Qualifiers: Asthma severity: mild Asthma persistence: intermittent Asthma complication type: uncomplicated Qualified Code(s): J45.20 - Mild intermittent asthma, uncomplicated (3) Cocaine dependence, uncomplicated Current Visit: Yes Status: Acute (4) Hx of head injury Current Visit: Yes Status: Chronic (5) Hypercholesterolemia Current Visit: Yes Status: Chronic (6) Seizure disorder Current Visit: Yes Status: Chronic (7) Cannabis dependence, uncomplicated Current Visit: Yes Status: Acute (8) Type 2 diabetes mellitus Current Visit: Yes Status: Chronic Cleared for Admission [facility] - Detox or Rehab [facility] Level of Care: Medically Managed Detox Regimen/Protocol: Valium S Breath Alcohol Content Breath Alcohol Content: 0 Urine Drug Screen - Results Drug Screen Negative: No Urine Drug Screen Results: THC-Marijuana, NEY-Cocaine
[2017-07-15] MEDS ORDERED: ACETAMINOPHEN 325 MG TABLET (FP) PO PRN (12:45)
[2017-07-15] MEDS ORDERED: MAGNESIUM HYDROX 2400MG/30ML ORAL SUSPENSION 30 ML CUP PO PRN (12:45)
[2017-07-15] MEDS ORDERED: MAGNESIUM CITRATE 300 ML BOTTLE PO PRN (12:45)
[2017-07-15] MEDS ORDERED: diazePAM 5 MG TABLET PO PRN (12:45)
[2017-07-15] MEDS ORDERED: guaiFENesin/D-METHORPHAN HB 10 ML UNIT-DOSE CUPS PO PRN (12:45)
[2017-07-15] MEDS ORDERED: NICOTINE POLACRILEX 2 MG GUM BC PRN (12:45)
[2017-07-15] MEDS ORDERED: P-EPHED 60MG/TRIPROLIDI 2.5MG TABLET PO PRN (12:45)
[2017-07-15] MEDS ORDERED: hydrOXYzine PAMOATE 50 MG CAPSULE (FP) PO PRN (12:45)
[2017-07-15] MEDS ORDERED: LOPERAMIDE HCL 2 MG CAPSULE PO PRN (12:45)
[2017-07-15] MEDS ORDERED: MENTHOL/PHENOL 1 EACH UD MM PRN (12:45)
[2017-07-15] MEDS ORDERED: MAG HYDROX/AL HYDROX/SIMETH 30 ML UNIT-DOSE CUP PO PRN (12:45)
[2017-07-15] MEDS ORDERED: ALBUTEROL SO4 18 GM HFA INHALER IH PRN (12:48)
[2017-07-15] MEDS ORDERED: levETIRAcetam 500 MG TABLET (FP) PO ONE (14:00)
[2017-07-15] MEDS ORDERED: diazePAM 5 MG TABLET PO ONE (14:00)
[2017-07-15] MEDS: ASPIRIN 81 MG CHEWABLE TABLETS PO SCH (14:17)
[2017-07-15] MEDS: NICOTINE 14 MG/24 HOURS TOPICAL PATCH TD SCH (14:18)
[2017-07-15] MEDS: diazePAM 5 MG TABLET PO SCH ×2 (14:18→23:04)
--- NOTE | 2017-07-15 14:36 | EKG ---
Test Reason : Blood Pressure : / mmHG Vent. Rate : 080 BPM Atrial Rate : 080 BPM P-R Int : 118 ms QRS Dur : 072 ms QT Int : 390 ms P-R-T Axes : 074 057 050 degrees QTc Int : 449 ms NORMAL SINUS RHYTHM NORMAL ECG WHEN COMPARED WITH ECG OF 25-FEB-2017 15:03, QT HAS LENGTHENED Confirmed by KIMMY OLMEDO MD ([id number]) on 07/15/2017 2:35:52 PM Referred By: Confirmed By:KIMMY OLMEDO MD
[2017-07-15 14:44] LABS: HEMATOCRIT 42.1 % (35.4-49); HEMOGLOBIN 14.2 GM/dL (11.7-16.9); MCH 31.5 pg (25.7-33.7); MCHC 33.7 g/dl (32.0-35.9); MEAN CELL VOLUME 93.4 fl (80-96); MEAN PLT VOLUME 9.3 fl (7.5-11.1); PLATELET COUNT 290 K/MM3 (134-434); RDW 14.5 % (11.9-15.9); WHITE BLOOD COUNT 14.3 K/mm3 (4.0-10.0)
[2017-07-15 15:12] LABS: ALBUMIN 3.9 g/dl (3.4-5.0); ANION GAP 10 (8-16); BLOOD UREA NITROGEN 17 mg/dL (7-18); CALCIUM 9.9 mg/dL (8.5-10.1); CHLORIDE 99 mmol/L (98-107); CO2 28 mmol/L (21-32); POTASSIUM 3.8 mmol/L (3.5-5.1); SGOT/AST 15 U/L (15-37); SGPT/ALT 14 U/L (12-78); SODIUM 137 mmol/L (136-145)
[2017-07-15 15:15] LABS: ALK PHOS 84 U/L (45-117); BILIRUBIN,TOTAL 0.6 mg/dL (0.2-1.0); TOT PROT 7.4 g/dl (6.4-8.2)
[2017-07-15 15:54] LABS: GLUCOSE,RANDOM 367 mg/dL (74-106)
[2017-07-15 17:13] LABS: URINE APPEARANCE SLCLOUDY; URINE BILIRUBIN NEGATIVE (<2.0 mg/dL); URINE COLOR LTYELLOW; URINE GLUCOSE (UA) 3+ (NEGATIVE); URINE KETONE NEGATIVE (NEGATIVE); URINE NITRITE NEGATIVE (NEGATIVE); URINE PROTEIN NEGATIVE (NEGATIVE)
[2017-07-15 17:21] LABS: URINE LEUK ESTERASE 3+ (NEGATIVE)
[2017-07-15 17:31] LABS: EPI CELLS RARE /HPF (FEW); URINE BACTERIA RARE /hpf (NONE SEEN); YEAST FEW
[2017-07-15] MEDS: sitaGLIPtin PHOSPHATE 50 MG TABLET PO ONE ×2 (18:06→19:01)
[2017-07-15] MEDS: metFORMIN HCL 500 MG TABLET (FP) PO ONE ×2 (18:07→18:48)
[2017-07-15] MEDS ORDERED: MELATONIN 5 MG TABLETS PO PRN (22:00)
[2017-07-15] MEDS: ATORVASTATIN CA 10 MG TABLET (FP) PO SCH (23:04)
[2017-07-15] MEDS: THIAMINE HCL 100 MG TABLET (FP) PO SCH (23:04)
[2017-07-15] MEDS: levETIRAcetam 500 MG TABLET (FP) PO SCH (23:05)
[2017-07-15] MEDS: INSULIN (LEVEMIR) 100 UNITS/ML UNITS SQ SCH (23:05)
[2017-07-16] MEDS: diazePAM 5 MG TABLET PO SCH ×3 (07:06→22:34)
[2017-07-16] MEDS: metFORMIN HCL 500 MG TABLET (FP) PO SCH (07:08)
[2017-07-16] MEDS: IBUPROFEN 400 MG TABLET (FP) PO PRN ×3 (07:09→22:31)
[2017-07-16] MEDS: sitaGLIPtin PHOSPHATE 50 MG TABLET PO SCH (07:12)
[2017-07-16] MEDS ORDERED: PATIENT'S OWN MEDICATION (NON-FORMULARY) (Sitagliptin Phos/Metformin Hcl [Janumet 50-1,000 PO SCH (10:00)
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
[2017-07-16] MEDS: NICOTINE 14 MG/24 HOURS TOPICAL PATCH TD SCH (11:43)
[2017-07-16] MEDS: PRENATAL VITAMINS W/ FOLIC ACID TABLET (FP) PO SCH (11:43)
[2017-07-16] MEDS: levETIRAcetam 500 MG TABLET (FP) PO SCH ×2 (11:43→22:33)
[2017-07-16] MEDS: ASPIRIN 81 MG CHEWABLE TABLETS PO SCH (11:43)
--- NOTE | 2017-07-16 11:58 | PN ---
S CIWA - CIWA Score Nausea/Vomitin-Mild Nausea/No Vomiting Muscle Tremors: 4-Moderate,w/Arms Extend Anxiety: 4-Mod. Anxious/Guarded Agitation: 4-Moderately Restless Paroxysmal Sweats: 1-Minimal Palms Moist Orientation: 0-Oriented Tacttile Disturbances: 1-Very Mild Itch/Numbness Auditory Disturbances: 0-None Visual Disturbances: 0-None Headache: 0-None Present CIWA-Ar Total Score: 15 BHS Progress Note (SOAP) Subjective: tremor sweat gi distress anxiety restlessness Objective: 07/16/17 11:54 Vital Signs Temperature 98.2 F 07/16/17 10:41 Pulse Rate 88 07/16/17 10:41 Respiratory Rate 16 07/16/17 10:41 Blood Pressure 102/52 07/16/17 10:41 O2 Sat by Pulse Oximetry (%) Laboratory Last Values WBC 14.3 K/mm3 (4.0-10.0) H D 07/15/17 12:50 RBC 4.50 M/mm3 (4.00-5.60) 07/15/17 12:50 Hgb 14.2 GM/dL (11.7-16.9) 07/15/17 12:50 Hct 42.1 % (35.4-49) 07/15/17 12:50 MCV 93.4 fl (80-96) 07/15/17 12:50 MCH 31.5 pg (25.7-33.7) 07/15/17 12:50 MCHC 33.7 g/dl (32.0-35.9) 07/15/17 12:50 RDW 14.5 % (11.9-15.9) 07/15/17 12:50 Plt Count 290 K/MM3 (134-434) 07/15/17 12:50 MPV 9.3 fl (7.5-11.1) 07/15/17 12:50 Sodium 137 mmol/L (136-145) 07/15/17 12:50 Potassium 3.8 mmol/L (3.5-5.1) 07/15/17 12:50 Chloride 99 mmol/L (98-107) 07/15/17 12:50 Carbon Dioxide 28 mmol/L (21-32) 07/15/17 12:50 Anion Gap 10 (8-16) 07/15/17 12:50 BUN 17 mg/dL (7-18) 07/15/17 12:50 Creatinine 1.0 mg/dL (0.7-1.3) 07/15/17 12:50 Creat Clearance w eGFR > 60 (>60) 07/15/17 12:50 POC Glucometer 90 UNITS (80-120) 07/16/17 07:05 Random Glucose 367 mg/dL (74-106) H* 07/15/17 12:50 Calcium 9.9 mg/dL (8.5-10.1) 07/15/17 12:50 Total Bilirubin 0.6 mg/dL (0.2-1.0) 07/15/17 12:50 AST 15 U/L (15-37) D 07/15/17 12:50 ALT 14 U/L (12-78) D 07/15/17 12:50 Alkaline Phosphatase 84 U/L (45-117) 07/15/17 12:50 Total Protein 7.4 g/dl (6.4-8.2) 07/15/17 12:50 Albumin 3.9 g/dl (3.4-5.0) 07/15/17 12:50 Urine Color Ltyellow 07/15/17 14:40 Urine Appearance Slcloudy 07/15/17 14:40 Urine pH 6.0 (5.0-8.0) 07/15/17 14:40 Ur Specific [place] 1.013 (1.001-1.035) 07/15/17 14:40 Urine Protein Negative (NEGATIVE) 07/15/17 14:40 Urine Glucose (UA) 3+ (NEGATIVE) H 07/15/17 14:40 Urine Ketones Negative (NEGATIVE) 07/15/17 14:40 Urine Blood Negative (NEGATIVE) 07/15/17 14:40 Urine Nitrite Negative (NEGATIVE) 07/15/17 14:40 Urine Bilirubin Negative (<2.0 mg/dL) 07/15/17 14:40 Urine Urobilinogen 2.0 mg/dL (0.2-1.0) 07/15/17 14:40 Ur Leukocyte Esterase 3+ (NEGATIVE) H 07/15/17 14:40 Urine WBC (Auto) 5 /hpf (3-5) 07/15/17 14:40 Urine RBC (Auto) 3 /hpf (0-3) 07/15/17 14:40 Ur Epithelial Cells Rare /HPF (FEW) 07/15/17 14:40 Urine Bacteria Rare /hpf (NONE SEEN) 07/15/17 14:40 Urine Yeast Few 07/15/17 14:40 RPR Titer Nonreactive (NONREACTIVE) 07/15/17 12:50 lab noted repeat ua hbg a1c Assessment: 07/16/17 11:57 withdrawal sx diabetes ii Plan: continue detox hgb a1c ua repeat
[2017-07-16] MEDS ORDERED: INSULIN (NOVOLOG) ASPART 100 UNITS/ML 10ML VIAL ONE (18:01)
[2017-07-16] MEDS: INSULIN SLIDING SCALE (NOVOLOG) 1 VIAL SQ SCH ×2 (18:04→23:10)
[2017-07-16] MEDS: ATORVASTATIN CA 10 MG TABLET (FP) PO SCH (22:32)
[2017-07-16] MEDS: THIAMINE HCL 100 MG TABLET (FP) PO SCH (22:33)
[2017-07-16] MEDS: INSULIN (LEVEMIR) 100 UNITS/ML UNITS SQ SCH ×2 (23:10→23:25)
--- NOTE | 2017-07-16 23:50 | PN ---
[facility] Progress Note Note: Patient was refusing Levemir. Discussed the normalizing of his blood glucose levels since here and started on meds as well as reviewed the health consequences of untreated or ineffective treatment of DM. Laboratory Results - last 24 hr 07/15/17 07/15/17 07/16/17 11:08 12:50 07:05 POC Glucometer 297 90 RPR Titer Nonreactive 07/16/17 07/16/17 16:23 21:49 POC Glucometer 132 159 RPR Titer Patient agreed to take Levimir and agrees to f/u w/ PCP when discharged.
[2017-07-17] MEDS: IBUPROFEN 400 MG TABLET (FP) PO PRN (05:29)
[2017-07-17] MEDS: INSULIN SLIDING SCALE (NOVOLOG) 1 VIAL SQ SCH ×4 (07:30→23:13)
[2017-07-17] MEDS: sitaGLIPtin PHOSPHATE 50 MG TABLET PO SCH (10:24)
[2017-07-17] MEDS: metFORMIN HCL 500 MG TABLET (FP) PO SCH (10:24)
[2017-07-17] MEDS: levETIRAcetam 500 MG TABLET (FP) PO SCH ×2 (10:24→23:12)
[2017-07-17] MEDS: ASPIRIN 81 MG CHEWABLE TABLETS PO SCH (10:24)
[2017-07-17] MEDS: PRENATAL VITAMINS W/ FOLIC ACID TABLET (FP) PO SCH (10:24)
[2017-07-17] MEDS: diazePAM 5 MG TABLET PO SCH ×2 (10:25→23:13)
[2017-07-17] MEDS: NICOTINE 14 MG/24 HOURS TOPICAL PATCH TD SCH (10:26)
--- NOTE | 2017-07-17 13:18 | PN ---
S CIWA - CIWA Score Nausea/Vomitin Muscle Tremors: 2 Anxiety: 2 Agitation: 2 Paroxysmal Sweats: 2 Orientation: 0-Oriented Tacttile Disturbances: 1-Very Mild Itch/Numbness Auditory Disturbances: 1-Very Mild Visual Disturbances: 0-None Headache: 2-Mild CIWA-Ar Total Score: 14 S Progress Note (SOAP) Subjective: Interrupted sleep, rib pain, abdominal cramps and anxiety Objective: 07/17/17 13:17 Vital Signs 07/17/17 07/17/17 06:24 10:00 Temperature 97.7 F 96.8 F L Pulse Rate 77 79 Respiratory 18 18 Rate Blood Pressure 104/56 125/73 Laboratory Last Values WBC 14.3 K/mm3 (4.0-10.0) H D 07/15/17 12:50 RBC 4.50 M/mm3 (4.00-5.60) 07/15/17 12:50 Hgb 14.2 GM/dL (11.7-16.9) 07/15/17 12:50 Hct 42.1 % (35.4-49) 07/15/17 12:50 MCV 93.4 fl (80-96) 07/15/17 12:50 MCH 31.5 pg (25.7-33.7) 07/15/17 12:50 MCHC 33.7 g/dl (32.0-35.9) 07/15/17 12:50 RDW 14.5 % (11.9-15.9) 07/15/17 12:50 Plt Count 290 K/MM3 (134-434) 07/15/17 12:50 MPV 9.3 fl (7.5-11.1) 07/15/17 12:50 Sodium 137 mmol/L (136-145) 07/15/17 12:50 Potassium 3.8 mmol/L (3.5-5.1) 07/15/17 12:50 Chloride 99 mmol/L (98-107) 07/15/17 12:50 Carbon Dioxide 28 mmol/L (21-32) 07/15/17 12:50 Anion Gap 10 (8-16) 07/15/17 12:50 BUN 17 mg/dL (7-18) 07/15/17 12:50 Creatinine 1.0 mg/dL (0.7-1.3) 07/15/17 12:50 Creat Clearance w eGFR > 60 (>60) 07/15/17 12:50 POC Glucometer 182 UNITS (80-120) 07/17/17 11:58 Random Glucose 367 mg/dL (74-106) H* 07/15/17 12:50 Hemoglobin A1c % 10.9 % (4.8-6.0) H 07/17/17 07:40 Calcium 9.9 mg/dL (8.5-10.1) 07/15/17 12:50 Total Bilirubin 0.6 mg/dL (0.2-1.0) 07/15/17 12:50 AST 15 U/L (15-37) D 07/15/17 12:50 ALT 14 U/L (12-78) D 07/15/17 12:50 Alkaline Phosphatase 84 U/L (45-117) 07/15/17 12:50 Total Protein 7.4 g/dl (6.4-8.2) 07/15/17 12:50 Albumin 3.9 g/dl (3.4-5.0) 07/15/17 12:50 Urine Color Ltyellow 07/15/17 14:40 Urine Appearance Slcloudy 07/15/17 14:40 Urine pH 6.0 (5.0-8.0) 07/15/17 14:40 Ur Specific [place] 1.013 (1.001-1.035) 07/15/17 14:40 Urine Protein Negative (NEGATIVE) 07/15/17 14:40 Urine Glucose (UA) 3+ (NEGATIVE) H 07/15/17 14:40 Urine Ketones Negative (NEGATIVE) 07/15/17 14:40 Urine Blood Negative (NEGATIVE) 07/15/17 14:40 Urine Nitrite Negative (NEGATIVE) 07/15/17 14:40 Urine Bilirubin Negative (<2.0 mg/dL) 07/15/17 14:40 Urine Urobilinogen 2.0 mg/dL (0.2-1.0) 07/15/17 14:40 Ur Leukocyte Esterase 3+ (NEGATIVE) H 07/15/17 14:40 Urine WBC (Auto) 5 /hpf (3-5) 07/15/17 14:40 Urine RBC (Auto) 3 /hpf (0-3) 07/15/17 14:40 Ur Epithelial Cells Rare /HPF (FEW) 07/15/17 14:40 Urine Bacteria Rare /hpf (NONE SEEN) 07/15/17 14:40 Urine Yeast Few 07/15/17 14:40 RPR Titer Nonreactive (NONREACTIVE) 07/15/17 12:50 Lab noted Assessment: 07/17/17 13:18 Withdrawal sx Plan: Continue detox
[2017-07-17] MEDS: INSULIN (LEVEMIR) 100 UNITS/ML UNITS SQ SCH (23:12)
[2017-07-17] MEDS: THIAMINE HCL 100 MG TABLET (FP) PO SCH (23:13)
[2017-07-17] MEDS: ATORVASTATIN CA 10 MG TABLET (FP) PO SCH (23:13)
[2017-07-18] MEDS: IBUPROFEN 400 MG TABLET (FP) PO PRN (05:41)
[2017-07-18] MEDS: metFORMIN HCL 500 MG TABLET (FP) PO SCH (06:10)
[2017-07-18] MEDS: INSULIN SLIDING SCALE (NOVOLOG) 1 VIAL SQ SCH ×4 (07:32→23:14)
[2017-07-18] MEDS: sitaGLIPtin PHOSPHATE 50 MG TABLET PO SCH (07:59)
[2017-07-18] MEDS: levETIRAcetam 500 MG TABLET (FP) PO SCH ×2 (10:17→23:14)
[2017-07-18] MEDS: PRENATAL VITAMINS W/ FOLIC ACID TABLET (FP) PO SCH (10:17)
[2017-07-18] MEDS: ASPIRIN 81 MG CHEWABLE TABLETS PO SCH (10:17)
[2017-07-18] MEDS: diazePAM 5 MG TABLET PO SCH ×2 (10:17→23:14)
[2017-07-18] MEDS: NICOTINE 14 MG/24 HOURS TOPICAL PATCH TD SCH (10:18)
[2017-07-18] MEDS ORDERED: INSULIN (NOVOLOG) ASPART 100 UNITS/ML 10ML VIAL ONE (11:51)
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
[2017-07-18] MEDS ORDERED: FLUCONAZOLE 100 MG TABLET (UD) PO ONE (16:00)
[2017-07-18 17:47] LABS: URINE APPEARANCE SLCLOUDY; URINE BILIRUBIN NEGATIVE (<2.0 mg/dL); URINE COLOR YELLOW; URINE GLUCOSE (UA) 3+ (NEGATIVE); URINE KETONE NEGATIVE (NEGATIVE); URINE LEUK ESTERASE TRACE (NEGATIVE); URINE NITRITE NEGATIVE (NEGATIVE); URINE PROTEIN NEGATIVE (NEGATIVE)
[2017-07-18 17:55] LABS: EPI CELLS RARE /HPF (FEW); URINE HYALINE CAST 4 /lpf; URINE MUCUS FEW
[2017-07-18] MEDS: INSULIN (LEVEMIR) 100 UNITS/ML UNITS SQ SCH (23:14)
[2017-07-18] MEDS: ATORVASTATIN CA 10 MG TABLET (FP) PO SCH (23:14)
[2017-07-18] MEDS: THIAMINE HCL 100 MG TABLET (FP) PO SCH (23:15)
[2017-07-19] MEDS: sitaGLIPtin PHOSPHATE 50 MG TABLET PO SCH (06:12)
[2017-07-19] MEDS: metFORMIN HCL 500 MG TABLET (FP) PO SCH (06:12)
[2017-07-19 06:38] VITALS: BP 104/56; PULSE 77; TEMP 98.1
[2017-07-19] MEDS ORDERED: INSULIN (NOVOLOG) ASPART 100 UNITS/ML 10ML VIAL ONE (07:20)
[2017-07-19] MEDS: IBUPROFEN 400 MG TABLET (FP) PO PRN (07:21)
[2017-07-19] MEDS: INSULIN SLIDING SCALE (NOVOLOG) 1 VIAL SQ SCH (07:29)
[2017-07-19] MEDS: ASPIRIN 81 MG CHEWABLE TABLETS PO SCH (09:02)
[2017-07-19] MEDS: PRENATAL VITAMINS W/ FOLIC ACID TABLET (FP) PO SCH (09:02)
[2017-07-19] MEDS: NICOTINE 14 MG/24 HOURS TOPICAL PATCH TD SCH (09:02)
[2017-07-19] MEDS: levETIRAcetam 500 MG TABLET (FP) PO SCH (09:02)
--- NOTE | 2017-07-19 09:02 | DS ---
[facility] Detox Discharge Summary Admission Date: 07/15/17 Discharge Date: 07/19/17 - History Present History: Alcohol Dependence Additional Comments: 57 years old male admitted on 07/15/17 for alcohol withdrawal sx completed alcohol detox regimen tolerated well denies alcohol withdrawal sx patient refuses chest x ray today befor [facility] patient is alert oriented x 3 no acute distress - Physical Exam Results Vital Signs: Vital Signs Temperature 98.1 F 07/19/17 06:38 Pulse Rate 77 07/19/17 06:38 Respiratory Rate 18 07/19/17 06:38 Blood Pressure 104/56 07/19/17 06:38 O2 Sat by Pulse Oximetry (%) Pertinent Admission Physical Exam Findings: withdrawal sx Vital Signs Temperature 98.1 F 07/19/17 06:38 Pulse Rate 77 07/19/17 06:38 Respiratory Rate 18 07/19/17 06:38 Blood Pressure 104/56 07/19/17 06:38 O2 Sat by Pulse Oximetry (%) Laboratory Last Values WBC 14.3 K/mm3 (4.0-10.0) H D 07/15/17 12:50 RBC 4.50 M/mm3 (4.00-5.60) 07/15/17 12:50 Hgb 14.2 GM/dL (11.7-16.9) 07/15/17 12:50 Hct 42.1 % (35.4-49) 07/15/17 12:50 MCV 93.4 fl (80-96) 07/15/17 12:50 MCH 31.5 pg (25.7-33.7) 07/15/17 12:50 MCHC 33.7 g/dl (32.0-35.9) 07/15/17 12:50 RDW 14.5 % (11.9-15.9) 07/15/17 12:50 Plt Count 290 K/MM3 (134-434) 07/15/17 12:50 MPV 9.3 fl (7.5-11.1) 07/15/17 12:50 Sodium 137 mmol/L (136-145) 07/15/17 12:50 Potassium 3.8 mmol/L (3.5-5.1) 07/15/17 12:50 Chloride 99 mmol/L (98-107) 07/15/17 12:50 Carbon Dioxide 28 mmol/L (21-32) 07/15/17 12:50 Anion Gap 10 (8-16) 07/15/17 12:50 BUN 17 mg/dL (7-18) 07/15/17 12:50 Creatinine 1.0 mg/dL (0.7-1.3) 07/15/17 12:50 Creat Clearance w eGFR > 60 (>60) 07/15/17 12:50 POC Glucometer 292 UNITS (80-120) 07/19/17 05:47 Random Glucose 367 mg/dL (74-106) H* 07/15/17 12:50 Hemoglobin A1c % 10.9 % (4.8-6.0) H 07/17/17 07:40 Calcium 9.9 mg/dL (8.5-10.1) 07/15/17 12:50 Total Bilirubin 0.6 mg/dL (0.2-1.0) 07/15/17 12:50 AST 15 U/L (15-37) D 07/15/17 12:50 ALT 14 U/L (12-78) D 07/15/17 12:50 Alkaline Phosphatase 84 U/L (45-117) 07/15/17 12:50 Total Protein 7.4 g/dl (6.4-8.2) 07/15/17 12:50 Albumin 3.9 g/dl (3.4-5.0) 07/15/17 12:50 Urine Color Yellow 07/18/17 11:56 Urine Appearance Slcloudy 07/18/17 11:56 Urine pH 5.0 (5.0-8.0) 07/18/17 11:56 Ur Specific [place] 1.024 (1.001-1.035) 07/18/17 11:56 Urine Protein Negative (NEGATIVE) 07/18/17 11:56 Urine Glucose (UA) 3+ (NEGATIVE) H 07/18/17 11:56 Urine Ketones Negative (NEGATIVE) 07/18/17 11:56 Urine Blood Negative (NEGATIVE) 07/18/17 11:56 Urine Nitrite Negative (NEGATIVE) 07/18/17 11:56 Urine Bilirubin Negative (<2.0 mg/dL) 07/18/17 11:56 Urine Urobilinogen 2.0 mg/dL (0.2-1.0) 07/18/17 11:56 Ur Leukocyte Esterase Trace (NEGATIVE) 07/18/17 11:56 Urine WBC (Auto) 5 /hpf (3-5) 07/18/17 11:56 Urine RBC (Auto) 1 /hpf (0-3) 07/18/17 11:56 Ur Epithelial Cells Rare /HPF (FEW) 07/18/17 11:56 Urine Bacteria Rare /hpf (NONE SEEN) 07/15/17 14:40 Hyaline Casts 4 /lpf 07/18/17 11:56 Urine Mucus Few 07/18/17 11:56 Urine Yeast Few 07/15/17 14:40 Levetiracetam None detected MCG/ML (10.0-40.0) 07/15/17 12:50 RPR Titer Nonreactive (NONREACTIVE) 07/15/17 12:50 lab noted - Treatment Hospital Course: Detox Protocol Followed, Detoxed Safely, Responded well, Discharged Condition Good, Rehab Referral Accepted Patient [facility] - Medication Discharge Medications: Ambulatory Orders Aspirin [ASA -] 81 mg PO DAILY 02/25/17 Insulin Glargine,Hum.rec.anlog [Lantus (10mL VIAL) -] 30 units SQ HS 02/25/17 Paroxetine HCl [Paxil] 40 mg PO DAILY #30 tablet 02/25/17 clonazePAM [Klonopin -] 0.5 mg PO HS 02/25/17 Albuterol Sulfate Inhaler - [Ventolin HFA Inhaler -] 2 inh PO Q4H PRN #1 inhaler 07/19/17 Simvastatin [Zocor -] 20 mg PO HS #30 tablet 07/19/17 Sitagliptin Phos/Metformin HCl [Janumet 50-1,000 mg Tablet] 1 each PO DAILY #30 tablet 07/19/17 levETIRAcetam [Keppra -] 500 mg PO BID #60 tablet 07/19/17 - Diagnosis (1) Alcohol dependence with uncomplicated withdrawal Current Visit: Yes Status: Acute (2) Asthma Current Visit: Yes Status: Chronic Qualifiers: Asthma severity: mild Asthma persistence: intermittent Asthma complication type: uncomplicated Qualified Code(s): J45.20 - Mild intermittent asthma, uncomplicated (3) Hypercholesterolemia Current Visit: Yes Status: Chronic (4) Seizure disorder Current Visit: Yes Status: Chronic (5) Type 2 diabetes mellitus Current Visit: Yes Status: Chronic Qualifiers: 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
[2017-07-19] MEDS ORDERED: diazePAM 5 MG TABLET PO SCH (10:00)
== END 2017-07-19 09:17 | disposition home or self-care (01) | DRG 775 ==
LOC: YASAS 10:12 → Y6N 13:08
PROVIDERS: ADMIT Internal Medicine; ATTEND Internal Medicine
PROC: HZ2ZZZZ Detoxification Services for Substance Abuse Treatment (ICD-10-PCS; principal; 2017-07-15)
DX: F10.230 Alcohol dependence with withdrawal, uncomplicated (principal); J45.20 Mild intermittent asthma, uncomplicated; E11.9 Type 2 diabetes mellitus without complications; Z79.4 Long term (current) use of insulin; G40.909 Epilepsy, unspecified, not intractable, without status epilepticus; E78.00 Pure hypercholesterolemia, unspecified
CPT/HCPCS: 36415; 80053; 81003; 81015; 82962; 83036; 85027; 86593; 87086; 87186; 93005; 93010

== ENCOUNTER 2017-09-08 10:22 | Inpatient (IN) | payer BC ==
[2017-09-08 11:21] VITALS: BMI 22.7
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
[2017-09-08] MEDS ORDERED: NICOTINE POLACRILEX 2 MG GUM BC PRN (13:14)
[2017-09-08] MEDS ORDERED: diazePAM 5 MG TABLET PO PRN (13:14)
[2017-09-08] MEDS ORDERED: MENTHOL/PHENOL 1 EACH UD MM PRN (13:14)
[2017-09-08] MEDS ORDERED: LOPERAMIDE HCL 2 MG CAPSULE PO PRN (13:14)
[2017-09-08] MEDS ORDERED: MAG HYDROX/AL HYDROX/SIMETH 30 ML UNIT-DOSE CUP PO PRN (13:14)
[2017-09-08] MEDS ORDERED: MAGNESIUM CITRATE 300 ML BOTTLE PO PRN (13:14)
[2017-09-08] MEDS ORDERED: ACETAMINOPHEN 325 MG TABLET (FP) PO PRN (13:14)
[2017-09-08] MEDS ORDERED: MAGNESIUM HYDROX 2400MG/30ML ORAL SUSPENSION 30 ML CUP PO PRN (13:14)
[2017-09-08] MEDS ORDERED: P-EPHED 60MG/TRIPROLIDI 2.5MG TABLET PO PRN (13:14)
[2017-09-08] MEDS ORDERED: guaiFENesin/D-METHORPHAN HB 10 ML UNIT-DOSE CUPS PO PRN (13:14)
[2017-09-08] MEDS ORDERED: ALBUTEROL SO4 18 GM HFA INHALER IH PRN (13:17)
[2017-09-08] MEDS ORDERED: ALBUTEROL SO4 0.083% IH SOL 2.5 MG/3 ML VIAL.NEB. NEB PRN (13:22)
[2017-09-08] MEDS ORDERED: diazePAM 5 MG TABLET PO ONE (14:30)
[2017-09-08] MEDS: NICOTINE 14 MG/24 HOURS TOPICAL PATCH TD SCH (15:00)
[2017-09-08] MEDS: levETIRAcetam 500 MG TABLET (FP) PO SCH ×2 (15:00→22:24)
[2017-09-08] MEDS: IBUPROFEN 400 MG TABLET (FP) PO PRN (15:04)
--- NOTE | 2017-09-08 15:38 | CONSULT ---
[facility] Psychiatric Consult - Data Date of interview: 09/08/17 Admission source: [facility] Identifying data: Patient is a 57 year old single male, father of one, homeless , and supported by [facility]. This is one of multiple admissions for patient. Patient admitted to for alcohol and cocaine dependence. Substance Abuse History: Smoking Cessation. Smoking history: Current every day smoker. Have you smoked in the past 12 months: Yes. Aproximately how many cigarettes per day: 4. Cigars Per Day: 0. Hx Chewing Tobacco Use: No. Initiated information on smoking cessation: Yes. 'Breaking Loose' booklet given : 09/08/17. - Substance & Tx. History. Hx Alcohol Use: Yes. Hx Substance Use : Yes. Substance Use Type: Alcohol, Cocaine. Hx Substance Use Treatment: Yes ( 07/2017 [facility]). - Substances Abused. Alcohol-beer. Route: Oral. Frequency: Daily. Amount used: 5-6 pks. Age of first use: 27. Date of Last Use: 09/08/17 Medical History: Hypercholesterolemia, seizures, diabetes, Spleenectomy, Plate in right hand due to fall injury in 1974 Psychiatric History: Patient's first psychiatric contact was in 1974 after he was taken to [facility] after attempting to jump out of a window. Patient was most recently hospitalized two months ago at [facility] after a suicide attempt of jumping in front of an [employer] train. Pt. reports also being hospitalized at [facility]. Pt. denies OPD. States he last accepted medications (paxil and trazodone) one year ago. Claims to have a diagnosis of bipolar disorder. Patient currently denies suicidal and homicidal ideation. Physical/Sexual Abuse/Trauma History: Denies. Mental Status Exam - Mental Status Exam Alert and Oriented to: Time, Place, Person Cognitive Function: Good Patient Appearance: Unkempt Mood: Sad, Euthymic Affect: Mood Congruent Patient Behavior: Cooperative Speech Pattern: Appropriate Voice Loudness: Normal Thought Process: Goal Oriented Thought Disorder: Not Present Hallucinations: Denies Suicidal Ideation: Denies Homicidal Ideation: Denies Insight/Judgement: Poor Sleep: Poorly Appetite: Fair Muscle strength/Tone: Normal Gait/Station: Normal Psychiatric Findings - Problem List ([place] 1, 2,3) (1) Alcohol dependence with uncomplicated withdrawal Current Visit: Yes Status: Acute (2) Asthma Current Visit: Yes Status: Chronic Qualifiers: Asthma severity: mild Asthma persistence: intermittent Asthma complication type: uncomplicated Qualified Code(s): J45.20 - Mild intermittent asthma, uncomplicated (3) Hypercholesterolemia Current Visit: Yes Status: Chronic (4) Leukocytosis Current Visit: Yes Status: Chronic Qualifiers: Leukocytosis type: unspecified Qualified Code(s): D72.829 - Elevated white blood cell count, unspecified (5) Nicotine dependence Current Visit: Yes Status: Chronic Qualifiers: Nicotine product type: cigarettes Substance use status: in withdrawal Qualified Code(s): F17.213 - Nicotine dependence, cigarettes, with withdrawal (6) Seizure Current Visit: Yes Status: Chronic (7) Type 2 diabetes mellitus Current Visit: Yes Status: Chronic Qualifiers: Diabetes mellitus care home insulin use: with care home use Diabetes mellitus complication status: with circulatory complication Diabetes mellitus complication detail: with other circulatory complications Qualified Code(s): E11.59 - Type 2 diabetes mellitus with other circulatory complications; Z79.4 - remote computer terminal operator (current) use of insulin; Z79.4 - senior living (current) use of insulin; Z79.4 - remote computer terminal operator (current) use of insulin; Z79.4 - remote computer terminal operator (current) use of insulin Comment: patient was taking insulin 30 units at night last dose "weeks" ago current bgm 341 had "few cups of juice" because "I like it" reduce lantus to 10 unit at night and bgm monitoring achs with coverage insulin may gradually increase lantus unit at night (8) S/P laparoscopic splenectomy Current Visit: Yes Status: Resolved (9) Insomnia Current Visit: Yes Status: Acute (10) Substance induced mood disorder Current Visit: Yes Status: Acute - Initial Treatment Plan Initial Treatment Plan: Psychoeducation provided. Detoxification in progress. Paxil 20mg PO daily + Trazodone 50mg qhs. Benefits and side effects discussed. Verbal consent given.
[2017-09-08] MEDS: INSULIN SLIDING SCALE (NOVOLOG) 1 VIAL SQ SCH ×2 (16:53→22:28)
[2017-09-08 17:02] LABS: URINE APPEARANCE CLEAR; URINE BILIRUBIN NEGATIVE (<2.0 mg/dL); URINE COLOR STRAW; URINE GLUCOSE (UA) 3+ (NEGATIVE); URINE KETONE NEGATIVE (NEGATIVE); URINE LEUK ESTERASE NEGATIVE (NEGATIVE); URINE NITRITE NEGATIVE (NEGATIVE); URINE PROTEIN NEGATIVE (NEGATIVE)
[2017-09-08] MEDS ORDERED: traZODone HCL 50 MG TABLET (FP) PO SCH (22:00)
[2017-09-08] MEDS ORDERED: MELATONIN 5 MG TABLETS PO PRN (22:00)
[2017-09-08] MEDS ORDERED: INSULIN (LEVEMIR) 100 UNITS/ML UNITS SQ SCH (22:00)
[2017-09-08] MEDS ORDERED: ATORVASTATIN CA 10 MG TABLET (FP) PO SCH (22:00)
[2017-09-08] MEDS ORDERED: THIAMINE HCL 100 MG TABLET (FP) PO SCH (22:00)
[2017-09-08] MEDS: diazePAM 5 MG TABLET PO SCH (22:25)
[2017-09-09] MEDS: diazePAM 5 MG TABLET PO SCH ×2 (06:42→15:10)
[2017-09-09] MEDS ORDERED: sitaGLIPtin PHOSPHATE 50 MG TABLET PO SCH (07:00)
[2017-09-09] MEDS ORDERED: metFORMIN HCL 500 MG TABLET (FP) PO SCH (07:00)
[2017-09-09] MEDS: INSULIN SLIDING SCALE (NOVOLOG) 1 VIAL SQ SCH ×3 (07:38→17:11)
[2017-09-09] MEDS ORDERED: INSULIN (NOVOLOG) ASPART 100 UNITS/ML 10ML VIAL ONE ×3 (07:48→12:29)
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
[2017-09-09] MEDS ORDERED: PARoxetine HCL 10 MG TABLET (FP) ONE (09:55)
[2017-09-09] MEDS ORDERED: PAROXETINE HCL 10 MG PO SCH (10:00)
[2017-09-09] MEDS ORDERED: ASPIRIN 81 MG CHEWABLE TABLETS PO SCH (10:00)
[2017-09-09] MEDS ORDERED: PARoxetine HCL 20 MG TABLET (FP) PO SCH (10:00)
[2017-09-09] MEDS ORDERED: PRENATAL VITAMINS W/ FOLIC ACID TABLET (FP) PO SCH (10:00)
[2017-09-09 10:20] LABS: HEMATOCRIT 39.8 % (35.4-49); HEMOGLOBIN 13.3 GM/dL (11.7-16.9); MCH 31.3 pg (25.7-33.7); MCHC 33.4 g/dl (32.0-35.9); MEAN CELL VOLUME 93.7 fl (80-96); MEAN PLT VOLUME 9.3 fl (7.5-11.1); PLATELET COUNT 364 K/MM3 (134-434); RBC 4.25 M/mm3 (4.00-5.60); RDW 13.4 % (11.9-15.9); WHITE BLOOD COUNT 10.2 K/mm3 (4.0-10.0)
[2017-09-09 10:25] LABS: CHLORIDE 101 mmol/L (98-107); POTASSIUM 4.7 mmol/L (3.5-5.1); SODIUM 137 mmol/L (136-145)
[2017-09-09 10:49] LABS: ALBUMIN 3.2 g/dl (3.4-5.0); ALK PHOS 96 U/L (45-117); ANION GAP 6 (8-16); BILIRUBIN,TOTAL 0.2 mg/dL (0.2-1.0); BLOOD UREA NITROGEN 16 mg/dL (7-18); CALCIUM 9.2 mg/dL (8.5-10.1); CO2 30 mmol/L (21-32); SGOT/AST 14 U/L (15-37); SGPT/ALT 20 U/L (12-78)
[2017-09-09 11:04] LABS: GLUCOSE,RANDOM 333 mg/dL (74-106)
--- NOTE | 2017-09-09 12:06 | PN ---
[facility] Progress Note Note: received patient from 3 alert oriented x 3 no acute distress left upper cheek skin intact no redness no swelling right upper back skin intact no redness no swell denies pain psychiatry referral informed for bipolar ii disorder
[2017-09-09] MEDS: NICOTINE 14 MG/24 HOURS TOPICAL PATCH TD SCH (12:22)
[2017-09-09] MEDS: IBUPROFEN 400 MG TABLET (FP) PO PRN (12:23)
[2017-09-09] MEDS: levETIRAcetam 500 MG TABLET (FP) PO SCH (12:23)
--- NOTE | 2017-09-09 12:46 | PN ---
Psychiatric Progress Note Vital Signs: Vital Signs Period Temp Pulse Resp BP Sys/Schulte Pulse Ox Last 24 Hr 96.4 F-98.1 F 73-89 16-18 107-142/64-89 Date of Session: 09/09/17 Chief Complaint:: Agitated, anxious, not following ndirections HPI: PAs per nursing reports patient has been evaluated at bed side for anxiety and agitation. Patient refusing to be evaluated, loud, agotated, refusing to take medications, is not folloving instractions and treatment plan. Current Medications: Active Medications Generic Name Dose Route Start Last Admin Trade Name Freq PRN Reason Stop Dose Admin Acetaminophen 650 mg 09/08/17 13:14 Tylenol - PO Q4H PRN FEVER Al Hydroxide/Mg Hydroxide 30 ml 09/08/17 13:14 Mylanta Oral Suspension - PO Q6H PRN DYSPEPSIA Albuterol Sulfate 2 puff 09/08/17 13:17 Ventolin Hfa Inhaler - IH Q4H PRN ASTHMA Albuterol Sulfate 1 amp 09/08/17 13:22 Ventolin 0.083% Nebulizer Soln - NEB Q6H PRN SHORT OF BREATH/WHEEZING Aspirin 81 mg 09/09/17 10:00 09/09/17 12:22 Asa - PO 81 mg DAILY DANIELLA Administration Atorvastatin Calcium 10 mg 09/08/17 22:00 09/08/17 22:24 Lipitor - PO 10 mg HS DANIELLA Administration Diazepam 10 mg 09/08/17 13:14 Valium - PO 09/11/17 13:13 Q4H PRN WITHDRAWAL(CONT SUBST) Diazepam 5 mg 09/08/17 22:00 09/09/17 06:42 Valium - PO 09/09/17 22:01 5 mg TID DANIELLA Administration Diazepam 5 mg 09/10/17 10:00 Valium - PO 09/11/17 22:01 BID DANIELLA Diazepam 5 mg 09/12/17 10:00 Valium - PO 09/12/17 10:01 DAILY DANIELLA Eucalyptus/Menthol/Phenol/Sorbitol 1 each 09/08/17 13:14 Cepastat Lozenge - MM Q4H PRN SORE THROAT Guaifenesin 10 ml 09/08/17 13:14 Robitussin Dm - PO Q6H PRN COUGH Ibuprofen 400 mg 09/08/17 13:14 09/09/17 12:23 Motrin - PO 400 mg Q6H PRN Administration PAIN LEVEL 4-6 Insulin Aspart 1 vial 09/08/17 16:30 09/09/17 12:38 Novolog Vial Sliding Scale - SQ Not Given ACHS [facility] Protocol Insulin Detemir 10 units 09/08/17 22:00 09/08/17 22:26 Levemir Vial SQ 10 units HS DANIELLA Administration Levetiracetam 500 mg 09/08/17 14:15 09/09/17 12:23 Keppra - PO 500 mg BID DANIELLA Administration Loperamide HCl 4 mg 09/08/17 13:14 Imodium - PO Q6H PRN DIARRHEA Magnesium Citrate 300 ml 09/08/17 13:14 Citroma - PO Q48H PRN CONSTIPATION Magnesium Hydroxide 30 ml 09/08/17 13:14 Milk Of Magnesia - PO DAILY PRN CONSTIPATION Melatonin 5 mg 09/08/17 22:00 Melatonin PO HS PRN INSOMNIA Metformin HCl 1,000 mg 09/09/17 07:00 09/09/17 06:42 Glucophage - PO 1,000 mg DAILY@0700 [facility] Administration Nicotine 14 mg 09/08/17 14:15 09/09/17 12:22 Nicoderm Patch - TD Not Given DAILY DANIELLA Nicotine Polacrilex 2 mg 09/08/17 13:14 Nicorette Gum - BC Q2H PRN NICOTINE REPLACEMENT RX Paroxetine HCl 20 mg 09/09/17 10:00 09/09/17 12:26 Paxil - PO 20 mg DAILY DANIELLA Administration Multivit/Folic Acid/Iron 1 tab 09/09/17 10:00 09/09/17 12:23 Vitamins (Sjr) - PO 1 tab DAILY DANIELLA Administration Pseudoephedrine/Triprolidine 1 combo 09/08/17 13:14 Actifed - PO TID PRN NASAL CONGESTION Sitagliptin Phosphate 50 mg 09/09/17 07:00 09/09/17 06:42 Januvia - PO 50 mg DAILY@0700 DANIELLA Administration Thiamine HCl 100 mg 09/08/17 22:00 09/08/17 22:25 Vitamin B1 - PO 100 mg HS DANIELLA Administration Trazodone HCl 50 mg 09/08/17 22:00 09/08/17 22:24 Desyrel - PO 50 mg HS DANIELLA Administration Medication(s) Change(s): Haldol 1mg po prn q4 for anxiety and agitation Provider note:: Patient refusing to be evaluated. Mental Status Exam - Mental Status Exam Alert and Oriented to: Person Cognitive Function: Fair Patient Appearance: Unkempt Mood: Angry Affect: Inappropriate Patient Behavior: Uncooperative Speech Pattern: Pressured Voice Loudness: Mildly Loud Thought Process: Goal Oriented Thought Disorder: Being Controlled Suicidal Ideation: Denies Homicidal Ideation: Denies Insight/Judgement: Poor Sleep: Difficulty falling asleep Appetite: Weight gain Psychiatric Treatment Plan - Problem List (1) Psychotic mood disorder Current Visit: Yes (2) Alcohol dependence with uncomplicated withdrawal Current Visit: Yes (3) Nicotine dependence Current Visit: Yes Qualifiers: Nicotine product type: cigarettes Substance use status: in withdrawal Qualified Code(s): F17.213 - Nicotine dependence, cigarettes, with withdrawal (4) Substance induced mood disorder Current Visit: Yes (5) Cocaine dependence, uncomplicated Current Visit: Yes Initial treatment plan: Haldol 1mg po prn q4 for anxiety and agitation.
[2017-09-09] MEDS ORDERED: HALOPERIDOL 1 MG TABLET (FP) PO PRN (12:49)
--- NOTE | 2017-09-09 16:23 | EKG ---
Test Reason : Blood Pressure : / mmHG Vent. Rate : 080 BPM Atrial Rate : 080 BPM P-R Int : 118 ms QRS Dur : 070 ms QT Int : 372 ms P-R-T Axes : 067 051 053 degrees QTc Int : 429 ms NORMAL SINUS RHYTHM NORMAL ECG WHEN COMPARED WITH ECG OF 15-JUL-2017 14:04, NO SIGNIFICANT CHANGE WAS FOUND Confirmed by KIMMY OLMEDO MD ([id number]) on 09/09/2017 4:22:58 PM Referred By: Confirmed By:KIMMY OLMEDO MD
[2017-09-09 17:28] VITALS: BP 123/69; PULSE 89; TEMP 98.2
--- NOTE | 2017-09-09 18:34 | PN ---
[facility] Progress Note Note: Patient did not wait and left the unit AMA and refuse to sign documentation.
--- NOTE | 2017-09-09 18:40 | DS ---
[facility] Detox Discharge Summary Admission Date: 09/08/17 Discharge Date: 09/09/17 - History Present History: Alcohol Dependence, Cannabis Dependence, Cocaine Dependence Additional Comments: Patient left AMA. No homicidal / suicidal ideation. Patient to follow up with ED , urgent care, PMD if worsening symptoms are present. Pertinent Past History: DM II Asthma Vital Signs Temperature 98.2 F 09/09/17 17:27 Pulse Rate 89 09/09/17 17:27 Respiratory Rate 19 09/09/17 17:27 Blood Pressure 123/69 09/09/17 17:27 O2 Sat by Pulse Oximetry (%) Laboratory Last Values WBC 10.2 K/mm3 (4.0-10.0) H 09/09/17 06:00 RBC 4.25 M/mm3 (4.00-5.60) 09/09/17 06:00 Hgb 13.3 GM/dL (11.7-16.9) 09/09/17 06:00 Hct 39.8 % (35.4-49) 09/09/17 06:00 MCV 93.7 fl (80-96) 09/09/17 06:00 MCH 31.3 pg (25.7-33.7) 09/09/17 06:00 MCHC 33.4 g/dl (32.0-35.9) 09/09/17 06:00 RDW 13.4 % (11.9-15.9) 09/09/17 06:00 Plt Count 364 K/MM3 (134-434) D 09/09/17 06:00 MPV 9.3 fl (7.5-11.1) 09/09/17 06:00 Sodium 137 mmol/L (136-145) 09/09/17 06:00 Potassium 4.7 mmol/L (3.5-5.1) D 09/09/17 06:00 Chloride 101 mmol/L (98-107) 09/09/17 06:00 Carbon Dioxide 30 mmol/L (21-32) 09/09/17 06:00 Anion Gap 6 (8-16) L 09/09/17 06:00 BUN 16 mg/dL (7-18) 09/09/17 06:00 Creatinine 1.0 mg/dL (0.7-1.3) 09/09/17 06:00 Creat Clearance w eGFR > 60 (>60) 09/09/17 06:00 POC Glucometer 231 UNITS (80-120) 09/09/17 16:41 Random Glucose 333 mg/dL (74-106) H* 09/09/17 06:00 Calcium 9.2 mg/dL (8.5-10.1) 09/09/17 06:00 Total Bilirubin 0.2 mg/dL (0.2-1.0) 09/09/17 06:00 AST 14 U/L (15-37) L 09/09/17 06:00 ALT 20 U/L (12-78) D 09/09/17 06:00 Alkaline Phosphatase 96 U/L (45-117) 09/09/17 06:00 Total Protein 7.0 g/dl (6.4-8.2) 09/09/17 06:00 Albumin 3.2 g/dl (3.4-5.0) L 09/09/17 06:00 Urine Color Straw 09/08/17 15:00 Urine Appearance Clear 09/08/17 15:00 Urine pH 7.0 (5.0-8.0) D 09/08/17 15:00 Ur Specific [place] 1.028 (1.001-1.035) 09/08/17 15:00 Urine Protein Negative (NEGATIVE) 09/08/17 15:00 Urine Glucose (UA) 3+ (NEGATIVE) H 09/08/17 15:00 Urine Ketones Negative (NEGATIVE) 09/08/17 15:00 Urine Blood Negative (NEGATIVE) 09/08/17 15:00 Urine Nitrite Negative (NEGATIVE) 09/08/17 15:00 Urine Bilirubin Negative (<2.0 mg/dL) 09/08/17 15:00 Urine Urobilinogen 2.0 mg/dL (0.2-1.0) 09/08/17 15:00 Ur Leukocyte Esterase Negative (NEGATIVE) 09/08/17 15:00 RPR Titer Nonreactive (NONREACTIVE) 09/09/17 06:00 - Physical Exam Results Vital Signs: Vital Signs Temperature 98.2 F 09/09/17 17:27 Pulse Rate 89 09/09/17 17:27 Respiratory Rate 19 09/09/17 17:27 Blood Pressure 123/69 09/09/17 17:27 O2 Sat by Pulse Oximetry (%) - Medication Discharge Medications: Ambulatory Orders Aspirin [ASA -] 81 mg PO DAILY 02/25/17 Insulin Glargine,Hum.rec.anlog [Lantus (10mL VIAL) -] 30 units SQ HS 02/25/17 Paroxetine HCl [Paxil] 40 mg PO DAILY #30 tablet 02/25/17 Albuterol Sulfate Inhaler - [Ventolin HFA Inhaler -] 2 inh PO Q4H PRN #1 inhaler 07/19/17 Simvastatin [Zocor -] 20 mg PO HS #30 tablet 07/19/17 Sitagliptin Phos/Metformin HCl [Janumet 50-1,000 mg Tablet] 1 each PO DAILY #30 tablet 07/19/17 levETIRAcetam [Keppra -] 500 mg PO BID #60 tablet 07/19/17 Trazodone HCl 50 mg PO HS 09/08/17 - Diagnosis (1) Abnormal finding on urinalysis Status: Acute (2) Alcohol dependence with uncomplicated withdrawal Status: Acute (3) Nicotine dependence Status: Acute Qualifiers: Nicotine product type: cigarettes Substance use status: in withdrawal Qualified Code(s): F17.213 - Nicotine dependence, cigarettes, with withdrawal (4) Weight loss Status: Acute (5) Asthma Status: Chronic Qualifiers: Asthma severity: mild Asthma persistence: intermittent Asthma complication type: uncomplicated Qualified Code(s): J45.20 - Mild intermittent asthma, uncomplicated (6) Cannabis dependence, uncomplicated Status: Chronic (7) Cocaine dependence, uncomplicated Status: Chronic (8) Leukocytosis Status: Chronic Qualifiers: Leukocytosis type: unspecified Qualified Code(s): D72.829 - Elevated white blood cell count, unspecified (9) Seizure Status: Chronic (10) Type 2 diabetes mellitus Status: Chronic Qualifiers: Diabetes mellitus [facility] insulin use: with bed bug exterminator use Diabetes mellitus complication status: with circulatory complication Diabetes mellitus complication detail: with other circulatory complications Qualified Code(s): E11.59 - Type 2 diabetes mellitus with other circulatory complications; Z79.4 - [facility] (current) use of insulin; Z79.4 - termite exterminator helper (current) use of insulin; Z79.4 - termite exterminator helper (current) use of insulin; Z79.4 - [facility] (current) use of insulin - AMA Did Patient Leave Against Medical Advice: Yes
[2017-09-10] MEDS ORDERED: diazePAM 5 MG TABLET PO SCH (10:00)
[2017-09-12] MEDS ORDERED: diazePAM 5 MG TABLET PO SCH (10:00)
== END 2017-09-09 17:45 | disposition left against medical advice (07) | DRG 770 ==
LOC: YASAS 10:22 → Y3N 13:51 → Y6N 09-09 09:40
PROVIDERS: ADMIT Surgery; ATTEND Surgery
PROC: HZ2ZZZZ Detoxification Services for Substance Abuse Treatment (ICD-10-PCS; principal; 2017-09-08)
DX: F10.230 Alcohol dependence with withdrawal, uncomplicated (principal); F14.20 Cocaine dependence, uncomplicated; F12.20 Cannabis dependence, uncomplicated; F17.213 Nicotine dependence, cigarettes, with withdrawal; F31.81 Bipolar II disorder; F19.24 Other psychoactive substance dependence with psychoactive substance-induced mood disorder; E11.9 Type 2 diabetes mellitus without complications; Z79.4 Long term (current) use of insulin; D72.829 Elevated white blood cell count, unspecified; J45.20 Mild intermittent asthma, uncomplicated; E78.00 Pure hypercholesterolemia, unspecified; G40.909 Epilepsy, unspecified, not intractable, without status epilepticus; R63.4 Abnormal weight loss; Z68.22 Body mass index [BMI] 22.0-22.9, adult; Z88.8 Allergy status to other drugs, medicaments and biological substances; Z91.5 Personal history of self-harm
CPT/HCPCS: 36415; 80053; 81003; 82962; 85027; 86593; 93005; 93010

== ENCOUNTER 2017-12-27 08:11 | Inpatient (IN) | payer BC ==
[2017-12-27 09:02] VITALS: BMI 23.0
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
[2017-12-27] MEDS ORDERED: MAG HYDROX/AL HYDROX/SIMETH 30 ML UNIT-DOSE CUP PO PRN (09:31)
[2017-12-27] MEDS ORDERED: P-EPHED 60MG/TRIPROLIDI 2.5MG TABLET PO PRN (09:31)
[2017-12-27] MEDS ORDERED: MAGNESIUM HYDROX 2400MG/30ML ORAL SUSPENSION 30 ML CUP PO PRN (09:31)
[2017-12-27] MEDS ORDERED: guaiFENesin/D-METHORPHAN HB 10 ML UNIT-DOSE CUPS PO PRN (09:31)
[2017-12-27] MEDS ORDERED: LOPERAMIDE HCL 2 MG CAPSULE PO PRN (09:31)
[2017-12-27] MEDS ORDERED: MAGNESIUM CITRATE 300 ML BOTTLE PO PRN (09:31)
[2017-12-27] MEDS ORDERED: ACETAMINOPHEN 325 MG TABLET (FP) PO PRN (09:31)
[2017-12-27] MEDS ORDERED: hydrOXYzine PAMOATE 50 MG CAPSULE (FP) PO PRN (09:31)
[2017-12-27] MEDS ORDERED: MENTHOL/PHENOL 1 EACH UD MM PRN (09:31)
[2017-12-27] MEDS ORDERED: diazePAM 5 MG TABLET PO PRN (09:31)
[2017-12-27] MEDS ORDERED: ALBUTEROL SO4 8 GM HFA INHALER IH PRN (10:23)
[2017-12-27] MEDS ORDERED: diazePAM 5 MG TABLET PO ONE (11:50)
[2017-12-27] MEDS ORDERED: INSULIN (NOVOLOG) ASPART 100 UNITS/ML 10ML VIAL ONE ×2 (12:50→23:08)
[2017-12-27] MEDS: NICOTINE 21 MG/24 HOURS TOPICAL PATCH TD SCH (12:53)
[2017-12-27] MEDS: PRENATAL VITAMINS W/ FOLIC ACID TABLET (FP) PO SCH (12:53)
[2017-12-27] MEDS: INSULIN (NOVOLOG) ASPART 100 UNITS/ML 10ML VIAL SQ SCH ×3 (12:55→23:10)
[2017-12-27] MEDS: GABAPENTIN 300 MG CAPSULE (FP) PO SCH ×2 (13:11→23:10)
[2017-12-27] MEDS: diazePAM 5 MG TABLET PO SCH ×2 (13:11→23:10)
--- NOTE | 2017-12-27 14:16 | CONSULT ---
[facility] Psychiatric Consult - Data Date of interview: 12/27/17 Admission source: [facility] Identifying data: This is 57 years old male, currently oversedated and is not capable to be psychiatrically evaluated.
[2017-12-27] MEDS: IBUPROFEN 400 MG TABLET (FP) PO PRN (17:13)
[2017-12-27] MEDS: metFORMIN HCL 500 MG TABLET (FP) PO SCH (17:14)
[2017-12-27] MEDS ORDERED: MELATONIN 5 MG TABLETS PO PRN (22:00)
[2017-12-27 22:20] LABS: URINE APPEARANCE SLCLOUDY; URINE BILIRUBIN NEGATIVE (<2.0 mg/dL); URINE COLOR LTYELLOW; URINE GLUCOSE (UA) 3+ (NEGATIVE); URINE KETONE NEGATIVE (NEGATIVE); URINE LEUK ESTERASE 2+ (NEGATIVE); URINE NITRITE NEGATIVE (NEGATIVE); URINE PROTEIN NEGATIVE (NEGATIVE); URINE UROBILINOGEN NEGATIVE mg/dL (0.2-1.0)
[2017-12-27 22:42] LABS: EPI CELLS RARE /HPF (FEW); URINE HYALINE CAST 1 /lpf; URINE MUCUS RARE; YEAST FEW
[2017-12-27] MEDS: ATORVASTATIN CA 20 MG TABLET (FP) PO SCH (23:10)
[2017-12-27] MEDS: INSULIN (LEVEMIR) 100 UNITS/ML UNITS SQ SCH (23:10)
[2017-12-27] MEDS: THIAMINE HCL 100 MG TABLET (FP) PO SCH (23:10)
[2017-12-27] MEDS: levETIRAcetam 500 MG TABLET (FP) PO SCH (23:10)
[2017-12-28] MEDS: GABAPENTIN 300 MG CAPSULE (FP) PO SCH ×3 (07:00→21:42)
[2017-12-28] MEDS: diazePAM 5 MG TABLET PO SCH ×3 (07:00→21:41)
[2017-12-28] MEDS: metFORMIN HCL 500 MG TABLET (FP) PO SCH ×2 (07:00→17:31)
[2017-12-28] MEDS: sitaGLIPtin PHOSPHATE 50 MG TABLET PO SCH (07:03)
[2017-12-28] MEDS ORDERED: INSULIN (NOVOLOG) ASPART 100 UNITS/ML 10ML VIAL ONE ×2 (07:04→11:39)
[2017-12-28] MEDS: IBUPROFEN 400 MG TABLET (FP) PO PRN ×2 (07:04→21:42)
[2017-12-28] MEDS: INSULIN (NOVOLOG) ASPART 100 UNITS/ML 10ML VIAL SQ SCH ×4 (07:07→21:46)
[2017-12-28 10:14] LABS: HEMATOCRIT 45.3 % (35.4-49); HEMOGLOBIN 15.3 GM/dL (11.7-16.9); MCH 31.6 pg (25.7-33.7); MCHC 33.7 g/dl (32.0-35.9); MEAN CELL VOLUME 93.8 fl (80-96); MEAN PLT VOLUME 9.7 fl (7.5-11.1); PLATELET COUNT 309 K/MM3 (134-434); RBC 4.83 M/mm3 (4.00-5.60); RDW 14.5 % (11.9-15.9); WHITE BLOOD COUNT 7.1 K/mm3 (4.0-10.0)
[2017-12-28] MEDS: ASPIRIN 81 MG CHEWABLE TABLETS PO SCH (11:02)
[2017-12-28] MEDS: NICOTINE 21 MG/24 HOURS TOPICAL PATCH TD SCH (11:02)
[2017-12-28] MEDS: levETIRAcetam 500 MG TABLET (FP) PO SCH ×2 (11:02→21:42)
[2017-12-28] MEDS: PRENATAL VITAMINS W/ FOLIC ACID TABLET (FP) PO SCH (11:03)
[2017-12-28] MEDS: amLODIPine BESYLATE 5 MG TABLET (FP) PO SCH (11:03)
[2017-12-28 11:08] LABS: ALBUMIN 3.4 g/dl (3.4-5.0); ALK PHOS 77 U/L (45-117); ANION GAP 8 MMOL/L (8-16); BILIRUBIN,TOTAL 0.4 mg/dL (0.2-1); BLOOD UREA NITROGEN 12 mg/dL (7-18); CALCIUM 9.8 mg/dL (8.5-10.1); CHLORIDE 98 mmol/L (98-107); CO2 28 mmol/L (21-32); POTASSIUM 5.1 mmol/L (3.5-5.1); SGOT/AST 10 U/L (15-37); SGPT/ALT 18 U/L (13-61); SODIUM 133 mmol/L (136-145); TOT PROT 7.2 g/dl (6.4-8.2)
[2017-12-28 11:17] LABS: GLUCOSE,RANDOM 352 mg/dL (74-106)
[2017-12-28] MEDS ORDERED: SULFAMETHOXAZOLE/TRIMETHOPRIM 800MG/160MG D.S. TABLET PO ONE (11:17)
[2017-12-28] MEDS ORDERED: amLODIPine BESYLATE 5 MG TABLET (FP) PO ONE (11:19)
[2017-12-28] MEDS ORDERED: PRENATAL VITAMINS W/ FOLIC ACID TABLET (FP) PO ONE (11:20)
[2017-12-28] MEDS ORDERED: ASPIRIN 81 MG CHEWABLE TABLETS PO ONE (11:21)
[2017-12-28] MEDS ORDERED: levETIRAcetam 500 MG TABLET (FP) PO ONE (11:21)
[2017-12-28] MEDS ORDERED: sitaGLIPtin PHOSPHATE 50 MG TABLET PO ONE (11:22)
[2017-12-28] MEDS ORDERED: PNEUMOCOCCAL 23 VACCINE 0.5 ML VIAL IM ONE (12:00)
[2017-12-28] MEDS ORDERED: FLU VACCINE QUAD 60 MCG/0.5 ML (MDV 18-19) IM ONE (12:00)
[2017-12-28] MEDS ORDERED: PNEUMOC 13-VAL CONJ-DIP CRM/PF 0.5 ML DISP.SYRIN IM ONE (12:00)
--- NOTE | 2017-12-28 12:04 | PN ---
[facility] CIWA - CIWA Score Nausea/Vomitin-No Nausea/No Vomiting Muscle Tremors: 4-Moderate,w/Arms Extend Anxiety: 3 Agitation: 3 Paroxysmal Sweats: 3 Orientation: 0-Oriented Tacttile Disturbances: 0-None Auditory Disturbances: 0-None Visual Disturbances: 0-None Headache: 0-None Present CIWA-Ar Total Score: 13 S Progress Note (SOAP) Subjective: I have burning when I am urinate and I discharge on my penis tired sweats irritable agitation body aches Objective: 12/28/17 12:02 Vital Signs Temperature 98.0 F 12/28/17 09:49 Pulse Rate 89 12/28/17 09:49 Respiratory Rate 18 12/28/17 09:49 Blood Pressure 111/69 12/28/17 09:49 O2 Sat by Pulse Oximetry (%) Laboratory Tests 12/27/17 12/27/17 12/27/17 10:17 10:50 12:48 WBC RBC Hgb Hct MCV MCH MCHC RDW Plt Count MPV Sodium Potassium Chloride Carbon Dioxide Anion Gap BUN Creatinine Creat Clearance w eGFR POC Glucometer 443 334 Random Glucose Calcium Total Bilirubin AST ALT Alkaline Phosphatase Total Protein Albumin Urine Color Urine Appearance Urine pH Ur Specific [place] Urine Protein Urine Glucose (UA) Urine Ketones Urine Blood Urine Nitrite Urine Bilirubin Urine Urobilinogen Ur Leukocyte Esterase Urine WBC (Auto) Urine RBC (Auto) Ur Epithelial Cells Hyaline Casts Urine Mucus Urine Yeast RPR Titer HIV 1&2 Antibody Screen Negative HIV P24 Antigen Negative 12/27/17 12/27/17 12/27/17 15:15 16:29 23:06 WBC RBC Hgb Hct MCV MCH MCHC RDW Plt Count MPV Sodium Potassium Chloride Carbon Dioxide Anion Gap BUN Creatinine Creat Clearance w eGFR POC Glucometer 167 311 Random Glucose Calcium Total Bilirubin AST ALT Alkaline Phosphatase Total Protein Albumin Urine Color Ltyellow Urine Appearance Slcloudy Urine pH 6.0 Ur Specific [place] 1.026 Urine Protein Negative Urine Glucose (UA) 3+ H Urine Ketones Negative Urine Blood Negative Urine Nitrite Negative Urine Bilirubin Negative Urine Urobilinogen Negative Ur Leukocyte Esterase 2+ H Urine WBC (Auto) 8 Urine RBC (Auto) 9 Ur Epithelial Cells Rare Hyaline Casts 1 Urine Mucus Rare Urine Yeast Few RPR Titer HIV 1&2 Antibody Screen HIV P24 Antigen 12/28/17 12/28/17 12/28/17 06:00 06:00 06:00 WBC 7.1 RBC 4.83 Hgb 15.3 Hct 45.3 MCV 93.8 MCH 31.6 MCHC 33.7 RDW 14.5 Plt Count 309 MPV 9.7 Sodium 133 L Potassium 5.1 Chloride 98 Carbon Dioxide 28 Anion Gap 8 BUN 12 Creatinine 1.0 Creat Clearance w eGFR > 60 POC Glucometer Random Glucose 352 H* Calcium 9.8 Total Bilirubin 0.4 AST 10 L ALT 18 Alkaline Phosphatase 77 Total Protein 7.2 Albumin 3.4 Urine Color Urine Appearance Urine pH Ur Specific [place] Urine Protein Urine Glucose (UA) Urine Ketones Urine Blood Urine Nitrite Urine Bilirubin Urine Urobilinogen Ur Leukocyte Esterase Urine WBC (Auto) Urine RBC (Auto) Ur Epithelial Cells Hyaline Casts Urine Mucus Urine Yeast RPR Titer Nonreactive HIV 1&2 Antibody Screen HIV P24 Antigen 12/28/17 12/28/17 06:49 11:19 WBC RBC Hgb Hct MCV MCH MCHC RDW Plt Count MPV Sodium Potassium Chloride Carbon Dioxide Anion Gap BUN Creatinine Creat Clearance w eGFR POC Glucometer 304 177 Random Glucose Calcium Total Bilirubin AST ALT Alkaline Phosphatase Total Protein Albumin Urine Color Urine Appearance Urine pH Ur Specific [place] Urine Protein Urine Glucose (UA) Urine Ketones Urine Blood Urine Nitrite Urine Bilirubin Urine Urobilinogen Ur Leukocyte Esterase Urine WBC (Auto) Urine RBC (Auto) Ur Epithelial Cells Hyaline Casts Urine Mucus Urine Yeast RPR Titer HIV 1&2 Antibody Screen HIV P24 Antigen aaox3 ambulating no acute distress repeat u/a Assessment: 12/28/17 12:03 withdrawal sx Plan: continue detox increase fluids bactrim ds daily nystatin cream ordered repeat u/a
--- NOTE | 2017-12-28 13:18 | EKG ---
Test Reason : Blood Pressure : / mmHG Vent. Rate : 087 BPM Atrial Rate : 087 BPM P-R Int : 116 ms QRS Dur : 068 ms QT Int : 358 ms P-R-T Axes : 066 039 053 degrees QTc Int : 430 ms NORMAL SINUS RHYTHM NORMAL ECG WHEN COMPARED WITH ECG OF 16-OCT-2017 14:55, NO SIGNIFICANT CHANGE WAS FOUND Confirmed by MD SOLEDAD, DIMA ([id number]) on 12/28/2017 1:18:02 PM Referred By: Confirmed By:DIMA ROWE MD
[2017-12-28] MEDS ORDERED: SULFAMETHOXAZOLE/TRIMETHOPRIM 800MG/160MG D.S. TABLET PO SCH (14:00)
[2017-12-28] MEDS: NYSTATIN 100,000 UNIT/GM TOPICAL CREAM 15 GM TUBE TP SCH ×2 (15:21→22:14)
[2017-12-28] MEDS: DOCUSATE SODIUM 100 MG CAPSULE (FP) PO SCH ×2 (15:21→21:42)
[2017-12-28] MEDS: ATORVASTATIN CA 20 MG TABLET (FP) PO SCH (21:41)
[2017-12-28] MEDS: SULFAMETHOXAZOLE/TRIMETHOPRIM 800MG/160MG D.S. TABLET PO SCH (21:42)
[2017-12-28] MEDS: THIAMINE HCL 100 MG TABLET (FP) PO SCH (21:42)
[2017-12-28] MEDS: INSULIN (LEVEMIR) 100 UNITS/ML UNITS SQ SCH (21:44)
[2017-12-29] MEDS: GABAPENTIN 300 MG CAPSULE (FP) PO SCH ×2 (06:18→15:09)
[2017-12-29] MEDS: DOCUSATE SODIUM 100 MG CAPSULE (FP) PO SCH ×2 (06:18→15:09)
[2017-12-29] MEDS: metFORMIN HCL 500 MG TABLET (FP) PO SCH ×2 (06:20→17:43)
[2017-12-29] MEDS: sitaGLIPtin PHOSPHATE 50 MG TABLET PO SCH (06:20)
[2017-12-29] MEDS: INSULIN (NOVOLOG) ASPART 100 UNITS/ML 10ML VIAL SQ SCH ×3 (06:21→17:43)
[2017-12-29] MEDS ORDERED: levETIRAcetam 250 MG TABLET (FP) PO ONE (09:18)
[2017-12-29] MEDS: levETIRAcetam 500 MG TABLET (FP) PO SCH (10:44)
[2017-12-29] MEDS: diazePAM 5 MG TABLET PO SCH (10:44)
[2017-12-29] MEDS: SULFAMETHOXAZOLE/TRIMETHOPRIM 800MG/160MG D.S. TABLET PO SCH (10:44)
[2017-12-29] MEDS: ASPIRIN 81 MG CHEWABLE TABLETS PO SCH (10:44)
[2017-12-29] MEDS: PRENATAL VITAMINS W/ FOLIC ACID TABLET (FP) PO SCH (10:44)
[2017-12-29] MEDS: amLODIPine BESYLATE 5 MG TABLET (FP) PO SCH (10:44)
[2017-12-29] MEDS: NICOTINE 21 MG/24 HOURS TOPICAL PATCH TD SCH (10:46)
[2017-12-29] MEDS: NYSTATIN 100,000 UNIT/GM TOPICAL CREAM 15 GM TUBE TP SCH (10:46)
--- NOTE | 2017-12-29 11:12 | PN ---
[facility] CIWA - CIWA Score Nausea/Vomitin-No Nausea/No Vomiting Muscle Tremors: 4-Moderate,w/Arms Extend Anxiety: 3 Agitation: 3 Paroxysmal Sweats: 3 Orientation: 0-Oriented Tacttile Disturbances: 0-None Auditory Disturbances: 0-None Visual Disturbances: 0-None Headache: 0-None Present CIWA-Ar Total Score: 13 S Progress Note (SOAP) Subjective: irritable agitation anxiety sweats interrupted sleep Objective: 12/29/17 11:11 Vital Signs Temperature 97.2 F L 12/29/17 10:33 Pulse Rate 98 H 12/29/17 10:33 Respiratory Rate 18 12/29/17 10:33 Blood Pressure 118/64 12/29/17 10:33 O2 Sat by Pulse Oximetry (%) Laboratory Tests 12/27/17 12/27/17 12/27/17 10:17 10:50 12:48 WBC RBC Hgb Hct MCV MCH MCHC RDW Plt Count MPV Sodium Potassium Chloride Carbon Dioxide Anion Gap BUN Creatinine Creat Clearance w eGFR POC Glucometer 443 334 Random Glucose Calcium Total Bilirubin AST ALT Alkaline Phosphatase Total Protein Albumin Urine Color Urine Appearance Urine pH Ur Specific [place] Urine Protein Urine Glucose (UA) Urine Ketones Urine Blood Urine Nitrite Urine Bilirubin Urine Urobilinogen Ur Leukocyte Esterase Urine WBC (Auto) Urine RBC (Auto) Ur Epithelial Cells Hyaline Casts Urine Mucus Urine Yeast RPR Titer HIV 1&2 Antibody Screen Negative HIV P24 Antigen Negative 12/27/17 12/27/17 12/27/17 15:15 16:29 23:06 WBC RBC Hgb Hct MCV MCH MCHC RDW Plt Count MPV Sodium Potassium Chloride Carbon Dioxide Anion Gap BUN Creatinine Creat Clearance w eGFR POC Glucometer 167 311 Random Glucose Calcium Total Bilirubin AST ALT Alkaline Phosphatase Total Protein Albumin Urine Color Ltyellow Urine Appearance Slcloudy Urine pH 6.0 Ur Specific [place] 1.026 Urine Protein Negative Urine Glucose (UA) 3+ H Urine Ketones Negative Urine Blood Negative Urine Nitrite Negative Urine Bilirubin Negative Urine Urobilinogen Negative Ur Leukocyte Esterase 2+ H Urine WBC (Auto) 8 Urine RBC (Auto) 9 Ur Epithelial Cells Rare Hyaline Casts 1 Urine Mucus Rare Urine Yeast Few RPR Titer HIV 1&2 Antibody Screen HIV P24 Antigen 12/28/17 12/28/17 12/28/17 06:00 06:00 06:00 WBC 7.1 RBC 4.83 Hgb 15.3 Hct 45.3 MCV 93.8 MCH 31.6 MCHC 33.7 RDW 14.5 Plt Count 309 MPV 9.7 Sodium 133 L Potassium 5.1 Chloride 98 Carbon Dioxide 28 Anion Gap 8 BUN 12 Creatinine 1.0 Creat Clearance w eGFR > 60 POC Glucometer Random Glucose 352 H* Calcium 9.8 Total Bilirubin 0.4 AST 10 L ALT 18 Alkaline Phosphatase 77 Total Protein 7.2 Albumin 3.4 Urine Color Urine Appearance Urine pH Ur Specific [place] Urine Protein Urine Glucose (UA) Urine Ketones Urine Blood Urine Nitrite Urine Bilirubin Urine Urobilinogen Ur Leukocyte Esterase Urine WBC (Auto) Urine RBC (Auto) Ur Epithelial Cells Hyaline Casts Urine Mucus Urine Yeast RPR Titer Nonreactive HIV 1&2 Antibody Screen HIV P24 Antigen 12/28/17 12/28/17 12/29/17 06:49 11:19 06:19 WBC RBC Hgb Hct MCV MCH MCHC RDW Plt Count MPV Sodium Potassium Chloride Carbon Dioxide Anion Gap BUN Creatinine Creat Clearance w eGFR POC Glucometer 304 177 128 Random Glucose Calcium Total Bilirubin AST ALT Alkaline Phosphatase Total Protein Albumin Urine Color Urine Appearance Urine pH Ur Specific [place] Urine Protein Urine Glucose (UA) Urine Ketones Urine Blood Urine Nitrite Urine Bilirubin Urine Urobilinogen Ur Leukocyte Esterase Urine WBC (Auto) Urine RBC (Auto) Ur Epithelial Cells Hyaline Casts Urine Mucus Urine Yeast RPR Titer HIV 1&2 Antibody Screen HIV P24 Antigen aaox3 ambulating no acute distress Assessment: 12/29/17 11:12 withdrawal sx Plan: continue detox increase fluids
[2017-12-30] MEDS: SULFAMETHOXAZOLE/TRIMETHOPRIM 800MG/160MG D.S. TABLET PO SCH ×3 (00:11→22:53)
[2017-12-30] MEDS: levETIRAcetam 500 MG TABLET (FP) PO SCH ×3 (00:11→22:53)
[2017-12-30] MEDS: DOCUSATE SODIUM 100 MG CAPSULE (FP) PO SCH ×4 (00:11→22:53)
[2017-12-30] MEDS: ATORVASTATIN CA 20 MG TABLET (FP) PO SCH ×2 (00:12→22:54)
[2017-12-30] MEDS: NYSTATIN 100,000 UNIT/GM TOPICAL CREAM 15 GM TUBE TP SCH ×3 (00:12→22:54)
[2017-12-30] MEDS: GABAPENTIN 300 MG CAPSULE (FP) PO SCH ×4 (00:12→22:55)
[2017-12-30] MEDS: INSULIN (NOVOLOG) ASPART 100 UNITS/ML 10ML VIAL SQ SCH ×5 (00:12→22:55)
[2017-12-30] MEDS: INSULIN (LEVEMIR) 100 UNITS/ML UNITS SQ SCH ×2 (00:12→22:54)
[2017-12-30] MEDS: diazePAM 5 MG TABLET PO SCH ×3 (00:13→22:55)
[2017-12-30] MEDS: THIAMINE HCL 100 MG TABLET (FP) PO SCH ×2 (00:13→22:55)
[2017-12-30] MEDS: sitaGLIPtin PHOSPHATE 50 MG TABLET PO SCH (06:11)
[2017-12-30] MEDS: metFORMIN HCL 500 MG TABLET (FP) PO SCH ×2 (06:11→17:41)
[2017-12-30] MEDS: IBUPROFEN 400 MG TABLET (FP) PO PRN (06:13)
[2017-12-30] MEDS ORDERED: INSULIN (NOVOLOG) ASPART 100 UNITS/ML 10ML VIAL ONE ×3 (06:15→17:09)
--- NOTE | 2017-12-30 08:01 | CONSULT ---
[facility] Psychiatric Consult - Data Date of interview: 12/30/17 Admission source: [facility] Identifying data: This is a 57 years old male, , father of one, unemp[ loyed, homeless, on SSD support, with psychiatric hospitalization history, with nBipolar Disorder history, with Heroin, alcohol,cocaine and marijuana dependence,reporting withdrawal symptoms and seeking detox,last detox 10/16/17 to 10/20/17 at [facility]. Substance Abuse History: Substances Abused. Alcohol. Route: Oral. Frequency: Daily. Amount used: 6 packs of 12 ozs of beer. Age of first use: 23. Date of Last Use: 12/26/17. Cocaine. Route: Smoking. Frequency: Daily. Amount used: 100$. Age of first use: 27. Date of Last Use: 12/26/17. Marijuana/Hashish. Route: Smoking. Frequency: Daily. Amount used: 10$. Age of first use: 32. Date of Last Use: 12/26/17. Heroin. Route: Inhalation. Frequency: 1-2 times per week. Amount used: 1 bag. Age of first use: 27. Date of Last Use: 12/24/17 Medical History: Seizure history, s/p Splenoctamy, Weight loss history, DM-2, Hypercholeterolemia, Head injury history, Asthma Psychiatric History: Patient reports history of depression and anxiety, as per computer carries MDD, Bipolar Disorder type II, with most recnt psychiatric admission on 1995, currently stable on: Paxil 40mg poqd. Gabapentin 300mg po tid. Lamictal 100mg po bid. Trazodone 100mg po qhs Physical/Sexual Abuse/Trauma History: Denies Additional Comment: Paxil 40mg poqd. Gabapentin 300mg po tid. Lamictal 100mg po bid. Trazodone 100mg po qhs Mental Status Exam - Mental Status Exam Alert and Oriented to: Person Cognitive Function: Fair Patient Appearance: Well Groomed Mood: Apprehensive Affect: Mood Congruent Patient Behavior: Cooperative Speech Pattern: Appropriate Voice Loudness: Normal Thought Process: Goal Oriented Thought Disorder: Being Controlled Hallucinations: Denies Suicidal Ideation: Denies Homicidal Ideation: Denies Insight/Judgement: Fair Sleep: Difficulty falling asleep Appetite: Weight loss Muscle strength/Tone: Normal Gait/Station: Normal Additional Comments: Paxil 40mg poqd. Gabapentin 300mg po tid. Lamictal 100mg po bid. Trazodone 100mg po qhs Psychiatric Findings - Problem List ([place] 1, 2,3) (1) History of splenectomy Current Visit: Yes Status: Acute (2) Alcohol dependence with uncomplicated withdrawal Current Visit: No Status: Acute (3) Cannabis dependence, uncomplicated Current Visit: No Status: Acute (4) Cocaine dependence, uncomplicated Current Visit: No Status: Acute (5) Psychotic mood disorder Current Visit: No Status: Acute (6) Substance induced mood disorder Current Visit: No Status: Acute (7) Weight loss Current Visit: No Status: Acute (8) Asthma Current Visit: No Status: Chronic Qualifiers: Asthma severity: mild Asthma persistence: intermittent Asthma complication type: uncomplicated Qualified Code(s): J45.20 - Mild intermittent asthma, uncomplicated (9) Bipolar II disorder Current Visit: No Status: Chronic (10) Hx of head injury Current Visit: No Status: Chronic (11) Hypercholesterolemia Current Visit: No Status: Chronic (12) MDD (major depressive disorder) Current Visit: No Status: Chronic (13) Type 2 diabetes mellitus Current Visit: No Status: Chronic Qualifiers: Diabetes mellitus prison insulin use: unspecified 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 Gabapentin 300mg po tid. Lamictal 100mg po bid. Trazodone 100mg po qhs
[2017-12-30] MEDS ORDERED: PARoxetine HCL 20 MG TABLET (FP) PO SCH (10:00)
[2017-12-30] MEDS: lamoTRIgine 100 MG TABLET (FP) PO SCH ×2 (10:46→22:53)
[2017-12-30] MEDS: amLODIPine BESYLATE 5 MG TABLET (FP) PO SCH (11:27)
[2017-12-30] MEDS: ASPIRIN 81 MG CHEWABLE TABLETS PO SCH (11:27)
[2017-12-30] MEDS: PRENATAL VITAMINS W/ FOLIC ACID TABLET (FP) PO SCH (11:28)
[2017-12-30] MEDS: NICOTINE 21 MG/24 HOURS TOPICAL PATCH TD SCH (11:34)
--- NOTE | 2017-12-30 12:59 | PN ---
[facility] Progress Note (SOAP) Subjective: sweats tired interrupted sleep Objective: 12/30/17 12:59 Vital Signs Temperature 98.1 F 12/30/17 09:25 Pulse Rate 83 12/30/17 09:25 Respiratory Rate 18 12/30/17 09:25 Blood Pressure 108/63 12/30/17 09:25 O2 Sat by Pulse Oximetry (%) aaox3 ambulating no acute distress Assessment: 12/30/17 12:59 mild withdrawal sx Plan: continue detox increase fluids d/c in am
[2017-12-30] MEDS ORDERED: traZODone HCL 100 MG TABLET (FP) PO SCH (22:00)
[2017-12-31] MEDS: metFORMIN HCL 500 MG TABLET (FP) PO SCH (06:14)
[2017-12-31] MEDS: GABAPENTIN 300 MG CAPSULE (FP) PO SCH (06:14)
[2017-12-31] MEDS: sitaGLIPtin PHOSPHATE 50 MG TABLET PO SCH (06:14)
[2017-12-31] MEDS: DOCUSATE SODIUM 100 MG CAPSULE (FP) PO SCH (06:15)
[2017-12-31] MEDS: INSULIN (NOVOLOG) ASPART 100 UNITS/ML 10ML VIAL SQ SCH (07:04)
[2017-12-31 08:23] VITALS: BP 108/56; PULSE 72; TEMP 97.7
[2017-12-31] MEDS: PRENATAL VITAMINS W/ FOLIC ACID TABLET (FP) PO SCH (09:28)
[2017-12-31] MEDS: amLODIPine BESYLATE 5 MG TABLET (FP) PO SCH (09:28)
[2017-12-31] MEDS: lamoTRIgine 100 MG TABLET (FP) PO SCH (09:28)
[2017-12-31] MEDS: SULFAMETHOXAZOLE/TRIMETHOPRIM 800MG/160MG D.S. TABLET PO SCH (09:29)
[2017-12-31] MEDS: ASPIRIN 81 MG CHEWABLE TABLETS PO SCH (09:29)
[2017-12-31] MEDS: levETIRAcetam 500 MG TABLET (FP) PO SCH (09:29)
[2017-12-31] MEDS ORDERED: diazePAM 5 MG TABLET PO SCH (10:00)
--- NOTE | 2017-12-31 10:01 | DS ---
[facility] Detox Discharge Summary Admission Date: 12/27/17 Discharge Date: 12/31/17 - History Present History: Alcohol Dependence, Cannabis Dependence, Cocaine Dependence - Physical Exam Results Vital Signs: Vital Signs Temperature 97.7 F 12/31/17 08:22 Pulse Rate 72 12/31/17 08:22 Respiratory Rate 18 12/31/17 08:22 Blood Pressure 108/56 L 12/31/17 08:22 O2 Sat by Pulse Oximetry (%) - Treatment Hospital Course: Detox Protocol Followed, Detoxed Safely, Responded well, Discharged Condition Good, Rehab Referral Accepted - Medication Discharge Medications: Ambulatory Orders Aspirin [ASA -] 81 mg PO DAILY 02/25/17 traZODone HCL [Trazodone HCl] 100 mg PO HS 09/08/17 Albuterol Sulfate Inhaler - [Ventolin HFA Inhaler -] 2 inh PO Q4H PRN #1 inhaler 10/19/17 Insulin Glargine,Hum.rec.anlog [Lantus (10mL VIAL) -] 15 units SQ HS #1 vial 09/29 Sitagliptin Phos/Metformin HCl [Janumet 50-1,000 mg Tablet] 1 each PO DAILY #30 tablet 10/19/17 levETIRAcetam [Keppra -] 500 mg PO BID #60 tablet 10/19/17 Amlodipine Besylate [Norvasc -] 5 mg PO DAILY 12/27/17 Atorvastatin Calcium [Lipitor] 20 mg PO HS 12/27/17 Gabapentin [Neurontin -] 300 mg PO Q8H 12/27/17 metFORMIN HCL [Glucophage -] 500 mg PO BID 12/27/17 Lamotrigine [LaMICtal -] 100 mg PO BID #60 tablet 12/30/17 Paroxetine HCl [Paxil] 40 mg PO DAILY #30 tablet 12/30/17 traZODone HCL [Trazodone HCl] 100 mg PO HS #30 tablet 12/30/17 - Diagnosis (1) History of splenectomy Current Visit: No Status: Resolved (2) Alcohol dependence with uncomplicated withdrawal Current Visit: Yes Status: Chronic (3) Cannabis dependence, uncomplicated Current Visit: Yes Status: Chronic (4) Cocaine dependence, uncomplicated Current Visit: Yes Status: Chronic (5) Nicotine dependence Current Visit: Yes Status: Chronic Qualifiers: Nicotine product type: cigarettes Substance use status: uncomplicated Qualified Code(s): F17.210 - Nicotine dependence, cigarettes, uncomplicated (6) Psychotic mood disorder Current Visit: No Status: Acute (7) Substance induced mood disorder Current Visit: No Status: Acute (8) Weight loss Current Visit: No Status: Acute (9) Asthma Current Visit: Yes Status: Chronic Qualifiers: Asthma severity: mild Asthma persistence: intermittent Asthma complication type: uncomplicated Qualified Code(s): J45.20 - Mild intermittent asthma, uncomplicated (10) Bipolar II disorder Current Visit: No Status: Chronic (11) Diabetes mellitus with hyperglycemia Current Visit: Yes Status: Chronic Qualifiers: Diabetes mellitus type: type 2 Diabetes mellitus intermediate insulin use: unspecified terminologist insulin use status Qualified Code(s): E11.65 - Type 2 diabetes mellitus with hyperglycemia (12) Hx of head injury Current Visit: No Status: Chronic (13) Hypercholesterolemia Current Visit: No Status: Chronic (14) MDD (major depressive disorder) Current Visit: No Status: Chronic - AMA Did Patient Leave Against Medical Advice: No (going home)
== END 2017-12-31 09:59 | disposition home or self-care (01) | DRG 774 ==
LOC: YASAS 08:11 → Y6N 11:14
PROC: HZ2ZZZZ Detoxification Services for Substance Abuse Treatment (ICD-10-PCS; principal; 2017-12-27)
DX: F10.230 Alcohol dependence with withdrawal, uncomplicated (principal); F14.20 Cocaine dependence, uncomplicated; F12.20 Cannabis dependence, uncomplicated; F17.210 Nicotine dependence, cigarettes, uncomplicated; F19.24 Other psychoactive substance dependence with psychoactive substance-induced mood disorder; F06.30 Mood disorder due to known physiological condition, unspecified; F31.81 Bipolar II disorder; F33.9 Major depressive disorder, recurrent, unspecified; J45.20 Mild intermittent asthma, uncomplicated; E11.65 Type 2 diabetes mellitus with hyperglycemia; E78.00 Pure hypercholesterolemia, unspecified; R00.0 Tachycardia, unspecified; Z87.820 Personal history of traumatic brain injury; Z91.14 Patient's other noncompliance with medication regimen; Z86.69 Personal history of other diseases of the nervous system and sense organs; Z87.898 Personal history of other specified conditions; Z88.0 Allergy status to penicillin; Z91.5 Personal history of self-harm
CPT/HCPCS: 36415; 80053; 81003; 81015; 82962; 85027; 86593; 87389; 93005; 93010

== ENCOUNTER 2019-03-22 10:37 | Inpatient (IN) | payer BC ==
[2019-03-22 11:12] VITALS: BMI 22.4
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
[2019-03-22] MEDS ORDERED: METHOCARBAMOL 500 MG TABLET PO PRN (12:33)
[2019-03-22] MEDS ORDERED: ACETAMINOPHEN 325 MG TABLET (FP) PO PRN ×2 (12:33)
[2019-03-22] MEDS ORDERED: hydrOXYzine PAMOATE 25 MG CAPSULE (FP) PO PRN (12:33)
[2019-03-22] MEDS ORDERED: MENTHOL/PHENOL 1 EACH UD MM PRN (12:33)
[2019-03-22] MEDS ORDERED: MELATONIN 5 MG TABLETS PO PRN (12:33)
[2019-03-22] MEDS ORDERED: MAGNESIUM CITRATE 300 ML BOTTLE PO PRN (12:33)
[2019-03-22] MEDS ORDERED: MAG HYDROX/AL HYDROX/SIMETH 30 ML UNIT-DOSE CUP PO PRN (12:33)
[2019-03-22] MEDS ORDERED: BISMUTH SUBSALICYLATE 262 MG/15 ML BTL PO PRN (12:33)
[2019-03-22] MEDS ORDERED: MAGNESIUM HYDROX 2400MG/30ML ORAL SUSPENSION 30 ML CUP PO PRN (12:33)
[2019-03-22] MEDS ORDERED: diazePAM 5 MG TABLET PO PRN (12:33)
[2019-03-22] MEDS ORDERED: ALBUTEROL SO4 8 GM HFA INHALER IH PRN (12:34)
[2019-03-22] MEDS: diazePAM 5 MG TABLET PO SCH ×2 (14:30→21:53)
[2019-03-22] MEDS: metFORMIN HCL 500 MG TABLET (FP) PO SCH (17:26)
[2019-03-22 17:40] LABS: HEMATOCRIT 38.1 % (35.4-49); HEMOGLOBIN 12.7 GM/dL (11.7-16.9); MCH 31.3 pg (25.7-33.7); MCHC 33.3 g/dl (32.0-35.9); MEAN PLT VOLUME 8.4 fl (7.5-11.1); PLATELET COUNT 341 K/MM3 (134-434); RBC 4.05 M/mm3 (4.00-5.60); RDW 13.6 % (11.9-15.9); WHITE BLOOD COUNT 11.2 K/mm3 (4.0-10.0)
[2019-03-22 17:47] LABS: ALBUMIN 3.2 g/dl (3.4-5.0); BILIRUBIN,TOTAL 0.3 mg/dL (0.2-1); CALCIUM 9.2 mg/dL (8.5-10.1); CREATININE 0.8 mg/dL (0.55-1.3); POTASSIUM 4.4 mmol/L (3.5-5.1); TOT PROT 6.9 g/dl (6.4-8.2)
[2019-03-22] MEDS: IBUPROFEN 400 MG TABLET (FP) PO PRN (21:52)
[2019-03-22] MEDS: ATORVASTATIN CA 20 MG TABLET (FP) PO SCH (21:53)
[2019-03-22] MEDS: THIAMINE HCL 100 MG TABLET (FP) PO SCH (21:53)
[2019-03-22] MEDS: levETIRAcetam 500 MG TABLET (FP) PO SCH (21:53)
[2019-03-22] MEDS: lamoTRIgine 100 MG TABLET (FP) PO SCH (21:56)
[2019-03-23] MEDS: diazePAM 5 MG TABLET PO SCH ×3 (05:47→22:27)
[2019-03-23] MEDS: metFORMIN HCL 500 MG TABLET (FP) PO SCH ×2 (06:41→17:04)
[2019-03-23] MEDS: levETIRAcetam 500 MG TABLET (FP) PO SCH ×2 (10:29→22:26)
[2019-03-23] MEDS: lamoTRIgine 100 MG TABLET (FP) PO SCH ×2 (10:29→22:27)
[2019-03-23] MEDS: NICOTINE 7 MG/24 HOURS TOPICAL PATCH TD SCH (10:29)
[2019-03-23] MEDS: PRENATAL VITAMINS W/ FOLIC ACID TABLET (FP) PO SCH (10:29)
[2019-03-23] MEDS: ASPIRIN 81 MG CHEWABLE TABLETS PO SCH (10:29)
[2019-03-23] MEDS: IBUPROFEN 400 MG TABLET (FP) PO PRN (10:31)
--- NOTE | 2019-03-23 12:36 | PN ---
[facility] CIWA - CIWA Score Nausea/Vomitin-Mild Nausea/No Vomiting (after breakfast) Muscle Tremors: 3 (both hands) Anxiety: 1-Mildly Anxious Agitation: 2 Paroxysmal Sweats: 2 Orientation: 1-Uncertain about Date (date of week) Tacttile Disturbances: 0-None Auditory Disturbances: 0-None Visual Disturbances: 1-Very Mild Sensitivity (to light) Headache: 2-Mild CIWA-Ar Total Score: 13 S Progress Note (SOAP) Subjective: 59 years old male admitted on 03/22/19 for alcohol withdrawal sx management treated with valium detox regimen ate 10% breakfast resting in bed feeling tired prefers to stay in bed today patient is treated under the medical management level that the patient presents alcohol withdrawal to rule out diabetes induced neuropathy and tremor order bgm bid synchronized with metformin Objective: 03/23/19 12:42 Vital Signs Temperature 97.3 F L 03/23/19 09:06 Pulse Rate 81 03/23/19 09:06 Respiratory Rate 16 03/23/19 09:06 Blood Pressure 103/58 L 03/23/19 09:06 O2 Sat by Pulse Oximetry (%) Laboratory Last Values WBC 11.2 K/mm3 (4.0-10.0) H 03/22/19 12:00 RBC 4.05 M/mm3 (4.00-5.60) 03/22/19 12:00 Hgb 12.7 GM/dL (11.7-16.9) 03/22/19 12:00 Hct 38.1 % (35.4-49) D 03/22/19 12:00 MCV 94.0 fl (80-96) 03/22/19 12:00 MCH 31.3 pg (25.7-33.7) 03/22/19 12:00 MCHC 33.3 g/dl (32.0-35.9) 03/22/19 12:00 RDW 13.6 % (11.9-15.9) 03/22/19 12:00 Plt Count 341 K/MM3 (134-434) 03/22/19 12:00 MPV 8.4 fl (7.5-11.1) D 03/22/19 12:00 Sodium 133 mmol/L (136-145) L 03/22/19 12:00 Potassium 4.4 mmol/L (3.5-5.1) 03/22/19 12:00 Chloride 99 mmol/L (98-107) 03/22/19 12:00 Carbon Dioxide 28 mmol/L (21-32) 03/22/19 12:00 Anion Gap 6 MMOL/L (8-16) L 03/22/19 12:00 BUN 16.0 mg/dL (7-18) 03/22/19 12:00 Creatinine 0.8 mg/dL (0.55-1.3) 03/22/19 12:00 Est GFR (CKD-EPI)AfAm 114.93 03/22/19 12:00 Est GFR (CKD-EPI)NonAf 99.16 03/22/19 12:00 POC Glucometer 343 UNITS (80-120) 03/23/19 05:49 Random Glucose 398 mg/dL (74-106) H 03/22/19 12:00 Calcium 9.2 mg/dL (8.5-10.1) 03/22/19 12:00 Total Bilirubin 0.3 mg/dL (0.2-1) 03/22/19 12:00 AST 12 U/L (15-37) L 03/22/19 12:00 ALT 13 U/L (13-61) 03/22/19 12:00 Alkaline Phosphatase 104 U/L (45-117) 03/22/19 12:00 Total Protein 6.9 g/dl (6.4-8.2) 03/22/19 12:00 Albumin 3.2 g/dl (3.4-5.0) L 03/22/19 12:00 RPR Titer Nonreactive (NONREACTIVE) 03/22/19 12:00 lab noted long hsitory of diabetes none adherence with antiglucemic medication while alcohol drinking Assessment: 03/23/19 12:44 alcohol withdrawal Plan: valium regimen
--- NOTE | 2019-03-23 15:50 | CONSULT ---
[facility] Psychiatric Consult - Data Date of interview: 03/23/19 Admission source: [facility] Identifying data: Multiple attempts were made to speak to patient concerning psychiatric consultation. 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 Psychiatric consultation refused. Please reorder psychiatric consultation if requested by patient.
[2019-03-23] MEDS: ATORVASTATIN CA 20 MG TABLET (FP) PO SCH (22:26)
[2019-03-23] MEDS: THIAMINE HCL 100 MG TABLET (FP) PO SCH (22:27)
[2019-03-24] MEDS: diazePAM 5 MG TABLET PO SCH ×2 (05:11→17:24)
[2019-03-24] MEDS: metFORMIN HCL 500 MG TABLET (FP) PO SCH ×2 (06:16→17:24)
[2019-03-24] MEDS: PRENATAL VITAMINS W/ FOLIC ACID TABLET (FP) PO SCH (10:00)
[2019-03-24] MEDS: lamoTRIgine 100 MG TABLET (FP) PO SCH ×2 (10:00→23:28)
[2019-03-24] MEDS: levETIRAcetam 500 MG TABLET (FP) PO SCH ×3 (10:00→23:47)
[2019-03-24] MEDS: ASPIRIN 81 MG CHEWABLE TABLETS PO SCH (10:00)
[2019-03-24] MEDS: NICOTINE 7 MG/24 HOURS TOPICAL PATCH TD SCH (10:01)
--- NOTE | 2019-03-24 11:48 | PN ---
S CIWA - CIWA Score Nausea/Vomitin-No Nausea/No Vomiting Muscle Tremors: 1-None Visible, but [place] Anxiety: 1-Mildly Anxious Agitation: 1-Slight > Activity Paroxysmal Sweats: 1-Minimal Palms Moist Orientation: 0-Oriented Tacttile Disturbances: 0-None Auditory Disturbances: 0-None Visual Disturbances: 0-None Headache: 0-None Present CIWA-Ar Total Score: 4 [facility] Progress Note (SOAP) Subjective: 59 years old male admitted on 03/22/19 for alcohol withdrawal sx management treated with valium detox regimen- anticipate d/c tomorrow O: Vital Signs - 24 hr 03/23/19 03/23/19 03/23/19 13:06 18:06 22:56 Temperature 97.0 F L 97.7 F 96.4 F L Pulse Rate 86 81 86 Respiratory 18 18 18 Rate Blood Pressure 122/75 107/70 120/66 03/24/19 03/24/19 03/24/19 00:30 03:30 06:07 Temperature 97.4 F L Pulse Rate 73 Respiratory 18 18 16 Rate Blood Pressure 100/63 03/24/19 09:03 Temperature 98.2 F Pulse Rate 79 Respiratory 18 Rate Blood Pressure 103/65 Laboratory Tests 03/22/19 03/22/19 03/22/19 12:00 12:00 12:00 WBC 11.2 H RBC 4.05 Hgb 12.7 Hct 38.1 D MCV 94.0 MCH 31.3 MCHC 33.3 RDW 13.6 Plt Count 341 MPV 8.4 D Sodium 133 L Potassium 4.4 Chloride 99 Carbon Dioxide 28 Anion Gap 6 L BUN 16.0 Creatinine 0.8 Est GFR (CKD-EPI)AfAm 114.93 Est GFR (CKD-EPI)NonAf 99.16 POC Glucometer Random Glucose 398 H Calcium 9.2 Total Bilirubin 0.3 AST 12 L ALT 13 Alkaline Phosphatase 104 Total Protein 6.9 Albumin 3.2 L RPR Titer Nonreactive 03/23/19 03/23/19 03/24/19 05:49 16:33 05:10 WBC RBC Hgb Hct MCV MCH MCHC RDW Plt Count MPV Sodium Potassium Chloride Carbon Dioxide Anion Gap BUN Creatinine Est GFR (CKD-EPI)AfAm Est GFR (CKD-EPI)NonAf POC Glucometer 343 405 328 Random Glucose Calcium Total Bilirubin AST ALT Alkaline Phosphatase Total Protein Albumin RPR Titer DM- high f/s a/p: 59 years old male admitted on 03/22/19 for alcohol withdrawal sx management treated with valium detox regimen diabetes- SS coverage, juniir- says since he is homeless not taking insulin- has been on it when he is hospitalized/detox/rehab d/c tomorrow- pt would like to go to rehab
[2019-03-24] MEDS ORDERED: INSULIN (NOVOLOG) ASPART 100 UNITS/ML 10ML VIAL SQ SCH (16:30)
[2019-03-24] MEDS: INSULIN SLIDING SCALE (NOVOLOG) 1 VIAL SQ SCH (23:27)
[2019-03-24] MEDS: INSULIN (LEVEMIR) 100 UNITS/ML UNITS SQ SCH ×2 (23:28→23:45)
[2019-03-24] MEDS: ATORVASTATIN CA 20 MG TABLET (FP) PO SCH ×2 (23:30→23:47)
[2019-03-24] MEDS: THIAMINE HCL 100 MG TABLET (FP) PO SCH (23:30)
[2019-03-25] MEDS ORDERED: diazePAM 5 MG TABLET PO ONE (06:00)
[2019-03-25 06:48] VITALS: BP 116/70; PULSE 86; TEMP 98.2
[2019-03-25] MEDS ORDERED: INSULIN SLIDING SCALE (NOVOLOG) 1 VIAL SQ ONE ×2 (07:17→07:24)
[2019-03-25] MEDS: metFORMIN HCL 500 MG TABLET (FP) PO SCH (07:20)
[2019-03-25] MEDS: INSULIN SLIDING SCALE (NOVOLOG) 1 VIAL SQ SCH (07:21)
[2019-03-25] MEDS: IBUPROFEN 400 MG TABLET (FP) PO PRN (07:26)
--- NOTE | 2019-03-25 12:22 | DS ---
[facility] Detox Discharge Summary Admission Date: 03/22/19 Discharge Date: 03/25/19 - History Present History: Alcohol Dependence, Cocaine Dependence, Opioid Dependence Additional Comments: Pt is medically cleared and discharge today. Pt completed the detox protocol. Pt is encouraged to follow-up with an outpatient CD program and also to follow- up with his pmd. Pt verabalized understanding. Pt is alert and oriented x3 and in no respiratory distress. Pertinent Past History: h/o asthma, HTN, DM, seizures, heroin, cocaine, and alcohol use disorder. - Physical Exam Results Vital Signs: Vital Signs Temperature 98.2 F 03/25/19 06:47 Pulse Rate 86 03/25/19 06:47 Respiratory Rate 18 03/25/19 06:47 Blood Pressure 116/70 03/25/19 06:47 O2 Sat by Pulse Oximetry (%) Vital Signs 03/25/19 06:47 Temperature 98.2 F Pulse Rate 86 Respiratory 18 Rate Blood Pressure 116/70 Laboratory Last Values WBC 11.2 K/mm3 (4.0-10.0) H 03/22/19 12:00 RBC 4.05 M/mm3 (4.00-5.60) 03/22/19 12:00 Hgb 12.7 GM/dL (11.7-16.9) 03/22/19 12:00 Hct 38.1 % (35.4-49) D 03/22/19 12:00 MCV 94.0 fl (80-96) 03/22/19 12:00 MCH 31.3 pg (25.7-33.7) 03/22/19 12:00 MCHC 33.3 g/dl (32.0-35.9) 03/22/19 12:00 RDW 13.6 % (11.9-15.9) 03/22/19 12:00 Plt Count 341 K/MM3 (134-434) 03/22/19 12:00 MPV 8.4 fl (7.5-11.1) D 03/22/19 12:00 Sodium 133 mmol/L (136-145) L 03/22/19 12:00 Potassium 4.4 mmol/L (3.5-5.1) 03/22/19 12:00 Chloride 99 mmol/L (98-107) 03/22/19 12:00 Carbon Dioxide 28 mmol/L (21-32) 03/22/19 12:00 Anion Gap 6 MMOL/L (8-16) L 03/22/19 12:00 BUN 16.0 mg/dL (7-18) 03/22/19 12:00 Creatinine 0.8 mg/dL (0.55-1.3) 03/22/19 12:00 Est GFR (CKD-EPI)AfAm 114.93 03/22/19 12:00 Est GFR (CKD-EPI)NonAf 99.16 03/22/19 12:00 POC Glucometer 367 UNITS (80-120) 03/25/19 07:15 Random Glucose 398 mg/dL (74-106) H 03/22/19 12:00 Calcium 9.2 mg/dL (8.5-10.1) 03/22/19 12:00 Total Bilirubin 0.3 mg/dL (0.2-1) 03/22/19 12:00 AST 12 U/L (15-37) L 03/22/19 12:00 ALT 13 U/L (13-61) 03/22/19 12:00 Alkaline Phosphatase 104 U/L (45-117) 03/22/19 12:00 Total Protein 6.9 g/dl (6.4-8.2) 03/22/19 12:00 Albumin 3.2 g/dl (3.4-5.0) L 03/22/19 12:00 RPR Titer Nonreactive (NONREACTIVE) 03/22/19 12:00 Labs noted. Pertinent Admission Physical Exam Findings: withdrawal symptoms. - Treatment Hospital Course: Detox Protocol Followed, Detoxed Safely, Responded well, Discharged Condition Good - Medication Discharge Medications: Ambulatory Orders Aspirin [ASA -] 81 mg PO DAILY 02/25/17 Albuterol Sulfate Inhaler - [Ventolin HFA Inhaler -] 2 inh PO Q4H PRN #1 inhaler 10/19/17 Insulin Glargine,Hum.rec.anlog [Lantus (10mL VIAL) -] 15 units SQ HS #1 vial 09/29 levETIRAcetam [Keppra -] 500 mg PO BID #60 tablet 10/19/17 Atorvastatin Calcium [Lipitor] 20 mg PO HS 12/27/17 Gabapentin [Neurontin -] 300 mg PO Q8H 12/27/17 metFORMIN HCL [Glucophage -] 500 mg PO BID 12/27/17 Lamotrigine [LaMICtal -] 100 mg PO BID #60 tablet 12/30/17 Paroxetine HCl [Paxil] 40 mg PO DAILY #30 tablet 12/30/17 traZODone HCL [Trazodone HCl] 100 mg PO HS #30 tablet 12/30/17 - Diagnosis (1) Alcohol dependence with uncomplicated withdrawal Status: Chronic (2) Asthma Status: Chronic Qualifiers: Asthma severity: mild Asthma persistence: intermittent Asthma complication type: uncomplicated Qualified Code(s): J45.20 - Mild intermittent asthma, uncomplicated (3) Cannabis dependence, uncomplicated Status: Chronic (4) Cocaine dependence, uncomplicated Status: Chronic (5) Diabetes mellitus with hyperglycemia Status: Chronic Qualifiers: Diabetes mellitus type: type 2 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
== END 2019-03-25 09:15 | disposition home or self-care (01) | DRG 773 ==
LOC: YASAS 10:37 → Y3N 13:26
PROVIDERS: ADMIT Allergy & Immunology; ATTEND Allergy & Immunology
PROC: HZ2ZZZZ Detoxification Services for Substance Abuse Treatment (ICD-10-PCS; principal; 2019-03-22)
DX: F10.230 Alcohol dependence with withdrawal, uncomplicated (principal); F11.23 Opioid dependence with withdrawal; F14.20 Cocaine dependence, uncomplicated; F12.20 Cannabis dependence, uncomplicated; F17.210 Nicotine dependence, cigarettes, uncomplicated; F31.9 Bipolar disorder, unspecified; G40.909 Epilepsy, unspecified, not intractable, without status epilepticus; I10 Essential (primary) hypertension; J45.20 Mild intermittent asthma, uncomplicated; E11.65 Type 2 diabetes mellitus with hyperglycemia; Z79.4 Long term (current) use of insulin; E78.00 Pure hypercholesterolemia, unspecified; Z91.5 Personal history of self-harm; Z87.828 Personal history of other (healed) physical injury and trauma; Z59.0 Homelessness; Z90.81 Acquired absence of spleen; Z91.14 Patient's other noncompliance with medication regimen
CPT/HCPCS: 36415; 80053; 82962; 85027; 86593